=== PATIENT | female | born 1970 | race Caucasian/White ===

== ENCOUNTER → 2016-11-01 | Outpatient (CLI) | payer OTHER ==
[~2016-11-01] MED LIST: ALBUAER19 INH; ASPEC81 PO; HYDR-5688 PO; LAVEOIL INH; MOME100A INH; MONT1TAB3 PO; MULT-506 PO; PEPPOIL INH; SENN-61 PO
--- NOTE | 2016-11-01 15:34 | DIAGNOSTIC IMAGING REPORT ---
CHEST 2 VIEWS ROUTINE CLINICAL HISTORY: Shortness of breath COMPARISON STUDY: 07/06/2015 FINDINGS: The cardiac and mediastinal contours are normal. There is no evidence of focal pulmonary consolidation. There is no evidence of failure. No pleural effusions are visualized.[ IMPRESSION: No active disease in the chest. Electronically signed by: Amos Nicholson M.D. 11/01/2016 3:32 PM Dictated Date/Time: 11/01/2016 3:32 PM
== END | disposition home or self-care (01) ==
LOC: C.RADPV 15:18
PROVIDERS: ATTEND Family Medicine
DX: R06.02 Shortness of breath (principal)

== ENCOUNTER → 2016-11-02 | Outpatient (CLI) | payer OTHER ==
--- NOTE | 2016-11-02 13:33 | MAMMOGRAPHY REPORT ---
BILATERAL DIGITAL SCREENING MAMMOGRAM TOMOSYNTHESIS WITH CAD: 11/02/2016 TECHNIQUE: Breast tomosynthesis in addition to standard 2D mammography was performed. Current study was also evaluated with a Computer Aided Detection (CAD) system. COMPARISON: Comparison is made to exams dated: 10/21/2015 mammogram, 10/19/2014 mammogram, 09/04/2012 mammogram, 08/19/2013 mammogram, 03/03/2013 mammogram, and 09/07/2011 mammogram - [facility]. BREAST COMPOSITION: The tissue of both breasts is heterogeneously dense, which may obscure small ma sses. FINDINGS: No suspicious masses, calcifications, or areas of architectural distortion are noted in e ither breast. There has been no significant interval change compared to prior exams. Scattered bilat eral benign-appearing calcifications are not significantly changed. IMPRESSION: ACR BI-RADS CATEGORY 2: BENIGN There is no mammographic evidence of malignancy. A 1 year screening mammogram is recommended. The p atient will receive written notification of the results. Approximately 10% of breast cancers are not detected with mammography. A negative mammographic repor t should not delay biopsy if a clinically suggestive mass is present. Yoselyn Alas M.D. /:11/02/2016 12:19:31 Masonry Installer: Angie SANCHEZ(Shade)(M), [facility] letter sent: Normal 1/2 BI-RADS Code: ACR BI-RADS Category 2: Benign
== END | disposition home or self-care (01) ==
LOC: C.MAMM 09:46
PROVIDERS: ATTEND Obstetrics & Gynecology
DX: Z12.31 Encounter for screening mammogram for malignant neoplasm of breast (principal)

== ENCOUNTER → 2017-05-31 | Outpatient (CLI) | payer OTHER | END | disposition home or self-care (01) | LOC: C.PAPS 11:45 | PROVIDERS: ATTEND Obstetrics & Gynecology | DX: Z12.4 Encounter for screening for malignant neoplasm of cervix (principal) ==

== ENCOUNTER → 2017-11-04 | Outpatient (CLI) | payer OTHER ==
--- NOTE | 2017-11-05 13:01 | MAMMOGRAPHY REPORT ---
BILATERAL DIGITAL SCREENING MAMMOGRAM TOMOSYNTHESIS WITH CAD: 11/04/2017 CLINICAL HISTORY: Routine screening. TECHNIQUE: Breast tomosynthesis in addition to standard 2D mammography was performed. Current study was also evaluated with a Computer Aided Detection (CAD) system. COMPARISON: Comparison is made to exams dated: 11/02/2016 mammogram, 10/21/2015 mammogram, 10/19/2014 m ammogram, 08/19/2013 mammogram, 09/04/2012 mammogram, and 09/03/2011 mammogram - [facility]ter. BREAST COMPOSITION: There are scattered areas of fibroglandular density in both breasts. FINDINGS: There are stable scattered and loosely grouped round and punctate microcalcifications bila terally. However, there are 2 possible new groupings of microcalcifications in the upper outer middl e and posterior right breast for which additional spot magnification views are recommended. No suspicious mass, asymmetry or architectural distortion is seen bilaterally. IMPRESSION: ACR BI-RADS CATEGORY 0: INCOMPLETE EVALUATION: NEED ADDITIONAL IMAGING EVALUATION The possible new groupings of faint microcalcifications in the right upper outer breast need addition al evaluation. The patient will be called to schedule an appointment. Approximately 10% of breast cancers are not detected with mammography. A negative mammographic report should not delay biopsy if a clinically suggestive mass is present. Joyce Minaya M.D. ay/:11/04/2017 14:35:53 [employer] Farmworker: Gio HARRINGTON)(Barrie), [facility] letter sent: Addl Imaging 0 BI-RADS Code: ACR BI-RADS Category 0: Incomplete Evaluation: Need Additional Imaging Evaluation
== END | disposition home or self-care (01) ==
LOC: C.MAMM 10:00
PROVIDERS: ATTEND Obstetrics & Gynecology
DX: Z12.31 Encounter for screening mammogram for malignant neoplasm of breast (principal)

== ENCOUNTER → 2017-11-12 | Outpatient (CLI) | payer OTHER ==
--- NOTE | 2017-11-13 07:58 | MAMMOGRAPHY REPORT ---
UNILATERAL RIGHT DIGITAL DIAGNOSTIC MAMMOGRAM: 11/12/2017 CLINICAL HISTORY: 47-year-old woman called back from screening mammography for possible new groupings of microcalcifications in the lateral right breast. TECHNIQUE: Spot magnification right CC and ML views were obtained. COMPARISON: Comparison is made to exams dated: 11/04/2017 mammogram, 11/02/2016 mammogram, 10/21/2015 m ammogram, 10/19/2014 mammogram, 08/19/2013 mammogram, and 09/04/2012 mammogram - [facility]ter. BREAST COMPOSITION: There are scattered areas of fibroglandular density in the right breast. FINDINGS: There are loose groupings and scattered microcalcifications throughout the right lateral b reast, mostly located in the upper outer quadrant. The microcalcifications are slightly increased in number comparing to prior spot magnification views obtained in 2012. Many of the calcifications dem onstrate tea cupping or flattening on the spot magnification ML views, suggesting benign milk of calc ium. They also have a smudgy appearance on the spot magnification CC views. Given the slight howeve r, increase in number of the groupings of calcifications, a short interval follow-up diagnostic mammo gram including spot magnification views is recommended to ensure stability in 6 months. No obvious f ocal area of architectural distortion or suspicious mass. IMPRESSION: ACR-BI-RADS CATEGORY 3: PROBABLY BENIGN There are scattered and loosely grouped smudgy microcalcifications in the lateral right breast, sligh tly increased in number comparing back to prior spot magnification views obtained in 2012, however ma ny demonstrate tea cupping or layering on the lateral view to suggest benign milk of calcium. Given the slight interval change, a short interval follow-up right diagnostic mammogram including repeat sp ot magnification views is recommended to ensure stability in 6 months. These results and recommendations were discussed with the patient at the time of the exam. She tenta tively scheduled a follow-up appointment prior to leaving our department. Approximately 10% of breast cancers are not detected with mammography. A negative mammographic report should not delay biopsy if a clinically suggestive mass is present. Joyce Minaya M.D. ay/:11/12/2017 10:24:56 Simulation Developer: Becca Al RT(R)(M), [facility] letter sent: Follow Up Recommended 3 BI-RADS Code: ACR-BI-RADS Category 3: Probably Benign
== END | disposition home or self-care (01) ==
LOC: C.MAMM 09:30
PROVIDERS: ATTEND Obstetrics & Gynecology
DX: R92.0 Mammographic microcalcification found on diagnostic imaging of breast (principal)

== ENCOUNTER 2021-04-18 18:29 | Inpatient (IN) ==
[2021-04-18] MEDS ORDERED: guaiFENesin 600 MG TABCR PO STA (22:57)
[2021-04-18] MEDS ORDERED: ONDANSETRON INJ 2 MG/ML 2 ML VIAL IV STA (22:57)
[2021-04-18] MEDS ORDERED: SODIUM CHLORIDE 0.9% 1000ML 2,000 ML IV ONE (22:57)
[2021-04-18] MEDS ORDERED: dexAMETHasone**PF** 10 MG/ML VIAL IV ONE (22:57)
[2021-04-18] MEDS ORDERED: FAMOTIDINE 20MG IV PUSH 20 MG/5 ML SYR IV STA (22:57)
[2021-04-18] MEDS ORDERED: IPRATROPIUM BROMIDE/ALBUTEROL respimat INH INH STA (22:59)
[2021-04-19 00:08] LABS: Prothrombin Time 10.3 Seconds (9.0-12.0)
[2021-04-19 00:09] LABS: Hematocrit (blood only) 43.1 % (37-47); Hemoglobin 14.5 g/dL (12.0-16.0); Mean Corpuscular Hemoglobin 31.3 pg (25-34); Mean Corpuscular Hgb Conc 33.6 g/dL (32-36); Mean Corpuscular Volume 93.1 fL (80-100); Mean Platelet Volume 9.8 fL (7.4-10.4); Platelet Count 166 K/uL (130-400); RDW Coefficient of Variation 13.6 % (11.5-14.5); RDW Standard Deviation 46.2 fL (36.4-46.3); Red Blood Count 4.63 M/uL (4.2-5.4); White Blood Count 4.34 K/uL (4.8-10.8)
[2021-04-19 00:11] LABS: Alanine Aminotransferase 53 U/L (12-78); Albumin Level 3.6 gm/dl (3.4-5.0); Aspartate Aminotransferase 29 U/L (15-37); Bilirubin Direct 0.2 mg/dl (0-0.2); Blood Urea Nitrogen 19 mg/dl (7-18); Calcium 8.5 mg/dl (8.5-10.1); Carbon Dioxide 31 mmol/L (21-32); Chloride 101 mmol/L (98-107); Creatinine Clr Calc Pharmacy 80.1 ml/min; Est GFR (African American) 80.8 ml/min; Est GFR (Non-African American) 69.8 ml/min; Glucose 129 mg/dl (70-99); Lipase 84 U/L (73-393); Magnesium 2.3 mg/dl (1.8-2.4); Potassium 3.5 mmol/L (3.5-5.1); Sodium 137 mmol/L (136-145)
[2021-04-19 00:14] LABS: Alkaline Phosphatase 72 U/L (45-117); Bilirubin,Total 0.7 mg/dl (0.2-1); Globulin 3.6 gm/dl (2.5-4.0); NT Pro B Type Natriuretic Pept 12 pg/ml (0-900); Phosphorus 3.2 mg/dl (2.5-4.9); Total Protein 7.2 gm/dl (6.4-8.2); Troponin I < 0.015 ng/ml (0-0.045)
[2021-04-19 00:18] LABS: Appearance Urine Clear (Clear); Bacteria Urine Automated Negative (Negative); Bilirubin Urine Negative (Negative); Blood Urine Negative (Negative); Color Urine Dark Yellow; Glucose Urine UA Negative (Negative); Ketones Urine 1+ (Negative); Leukocyte Esterase Urine Negative (Negative); Nitrite Urine Negative (Negative); Protein Urine Trace (Negative); RBC Urine Automated 0-4 /hpf (0-4); Specific Gravity Urine 1.034 (1.000-1.030); Urobilinogen Urine Negative (Negative); pH Urine 5.5 (4.5-7.5)
[2021-04-19 00:28] LABS: Basophils # (auto) 0.01 K/uL (0-0.2); Basophils % (auto) 0.2 %; Immature Granulocytes # (auto) 0.05 K/uL (0.00-0.02); Immature Granulocytes % (auto) 1.2 %; Lymphocytes # (auto) 0.94 K/uL (1.2-3.4); Lymphocytes % (auto) 21.7 %; Monocytes # (auto) 0.38 K/uL (0.11-0.59); Monocytes % (auto) 8.8 %; Neutrophils # (auto) 2.96 K/uL (1.4-6.5); Neutrophils % (auto) 68.1 %
--- NOTE | 2021-04-19 02:21 | Emergency Department Note ---
Impression & Plan Pneumonia due to COVID-19 virus, Hypoxia, Nausea & vomiting, Dehydration ED Provider Note NAME: GARRETT AMAYA AGE: 50 SEX: F ARRIVES VIA: Walk-In INFORMANT: Patient, ED PROVIDER(S): Bret Garcia MD CHIEF COMPLAINT: COVID-19, shortness of breath PLAN: Disposition: Admit MEDICAL DECISION MAKING: The patient is a pleasant 50-year-old woman with a past medical history of asthma, NIKUNJ on CPAP, GERD, hypertension, anxiety who presents to the emergency department with worsening shortness of breath in setting being diagnosed with CO VID-19 last week. She reports she has been feeling as though she needs to use her CPAP throughout the day given her symptoms. She reports nausea and vomiting with decreased appetite and oral intake. She denies diarrhea. She reports chest tightness but denies discrete pain with inspiration. On arrival the patient is uncomfortable, mildly dyspneic appearing, afebrile with heart in the 100s with O2 saturation as low as 88% on room air and vital signs otherwise stable. On exam the patient appears clinically dry. Lungs with scant wheezes and rhonchi. EKG without overt acute ischemia. Chest x-ray with patchy infiltrates, left greater than right per my preliminary review. WBC 4.3K with lymphopenia of 0.94 consistent with the patient's known COVID-19 infection. H/H and platelets within normal limits. Chemistry without metabolic acidosis. BUN/creatinine> 20 consistent with patient's clinical dry appearance. Electrolytes without significant abnormality. LFTs are unremarkable. Troponin negative/undetectable. BNP within normal limits and so PE is less likely. UA without convincing evidence of infection. COVID-19 PCR is still positive. Patient reported feeling somewhat improved after supplemental O2, IV fluid hydration, Combivent, guaifenesin, dexamethasone, famotidine and Zofran. Given the patient's hypoxia in the setting of her COVID-19 PNA she agrees with plan for admission for further management. Case was discussed with Dr. Casillas, [facility] hospitalist, who will evaluate the patient for admission. Triage Nursing notes reviewed and agree them. Prior medical records reviewed Vital Signs: reviewed and remarkable for cardiac and hypoxia. Differential diagnosis: Reactive airway disease, pneumonia, pneumothorax, COPD, CHF, infections, cardiac ischemia, pulmonary embolism, musculoskeletal, gastrointestinal, as well as other pathologies. ER treatment provided: See below. Diagnostics interpreted by me: ECG: Normal sinus rhythm, 94 bpm, no overt ST elevation or depression, QTC 420 QRS 70. Cardiac Monitoring: An order for continuous cardiac monitoring was placed and demonstrated normal sinus rhythm, 94 bpm, no ectopy. Laboratory studies: See below Imaging studies: CXR: Patchy bilateral infiltrates left greater than right per my preliminary review. Consultation(s): Case was discussed with Dr. Casillas, [facility] hospitalist, who will evaluate the patient for admission. HPI: The patient is a pleasant 50-year-old woman with a past medical history of asthma, NIKUNJ on CPAP, GERD, hypertension, anxiety who presents to the emergency department with worsening shortness of breath in setting being diagnosed with COVID-19 last week. She reports she has been feeling as though she needs to use her CPAP throughout the day given her symptoms. She reports nausea and vomiting with decreased appetite and oral intake. She denies diarrhea. She reports chest tightness but denies discrete pain with inspiration. ROS: See above HPI for pertinent positives & negatives. A total of 10 systems reviewed and were otherwise negative. PAST MEDICAL HISTORY:See Below PAST SURGICAL HISTORY:See Below FAMILY HISTORY:See Below SOCIAL HISTORY:See Below HOME MEDICATIONS:See Below ALLERGIES:See Below VITALS:See Below PHYSICAL EXAMINATION: GENERAL: Awake, alert, fatigued/uncomfortable-appearing, in no distress, BMI 46. HENT: Normocephalic, atraumatic. Oropharynx dry mucous membranes. EYES: Normal conjunctiva. Sclera non-icteric. NECK: Supple. No nuchal rigidity. FROM. No JVD. RESPIRATORY: Scant wheezes and rhonchi. Mildly dyspneic but no acute respiratory distress. CARDIAC: Tachycardic rate, normal rhythm. Extremities warm and well perfused. Pulses equal. ABDOMEN: Soft, non-distended. No tenderness to palpation. No rebound or guarding. No masses. RECTAL: Deferred. MUSCULOSKELETAL: Chest examination reveals no tenderness. The back is symmetrical on inspection without obvious abnormality. There is no CVA tenderness to palpation. No joint edema. LOWER EXTREMITIES: Calves are equal size bilaterally and non-tender. No edema. No discoloration. NEURO: Normal sensorium. No sensory or motor deficits noted. SKIN: No rash or jaundice noted. Bret Garcia MD Past Med/Surg History Medical History (Updated 04/19/21 @ 17:08 by Bret Garcia MD) Asthma inhaler daily/prn Depression GERD (gastroesophageal reflux disease) HGSIL (high grade squamous intraepithelial lesion) on Pap smear of cervix 1990 History of anesthesia reaction difficulty waking History of bloody stools History of thyroid disease Mild dysplasia of cervix (MARTINA I) Osteoarthritis Pancreatitis Surgical History H/O colposcopy with cervical biopsy History of section History of colonoscopy History of dilatation and curettage History of root canal procedure History of total left knee replacement (TKR) History of total right knee replacement (TKR) History of wisdom tooth extraction S/P conization of cervix S/P myringotomy with insertion of tube S/P tonsillectomy and adenoidectomy Family History Grandmother (Maternal) Diabetes Aunt Breast cancer maternal aunt Family/Other Colorectal cancer Prostate cancer Myocardial infarction Grandfather (Maternal) Myocardial infarction Mother Parkinson disease Denies family history of Ovarian cancer Social History Smoking Status: Never smoker Second Hand Exposure: Yes (mother smoked); Hx Alcohol Use: No Hx Substance Use: No Preferred Language: Belarusian Communication Ability: Effective Pharmacy Messenger Required: No Beliefs That Will Affect Care: None marital status: Current Living Situation: Spouse Current Living Situation Comment: lives with and son current occupational status: employed Feels Safe at Home: Yes caffeine: Yes Dental Care, Regularly: Yes Physical Activity Frequency: Daily Seatbelt Use: always Sunscreen Use: Yes Assistive Devices: Oxygen - Continuous Allergies Allergies Allergy/AdvReac Type Severity Reaction Status Date / Time Sulfa (Sulfonamide Allergy Severe Anaphylaxis Verified 04/18/21 22:24 Antibiotics) Home Meds Home Medications Medication Instructions Recorded Confirmed calcium carbonate 300 mg (750 mg) 300 mg PO DAILY PRN 08/25/18 04/18/21 chewable tablet (Tums) cholecalciferol (vitamin D3) 25 1,000 unit PO DAILY PRN 08/25/18 04/18/21 mcg (1,000 unit) capsule (Vitamin D3) multivitamin 1 tab PO QAM 08/25/18 04/18/21 omeprazole 40 mg capsule,delayed 40 mg PO DAILY 04/18/21 04/18/21 release Previous Rx's Medication Instructions Recorded CPAP Machine #11 ea 03/26/19 citalopram 10 mg tablet 10 mg PO DAILY #30 tab 10/13/20 lisinopril 10 mg tablet 10 mg PO DAILY #30 tab 10/13/20 estradiol 0.5 mg tablet 0.5 mg PO DAILY #30 tab 11/17/20 medroxyprogesterone 10 mg tablet 10 mg PO .COMPLEX #10 tab 11/17/20 albuterol sulfate 90 mcg/actuation 1 - 2 puff INHALATION QID PRN #18 03/10/21 aerosol inhaler (Ventolin HFA) gm fluticasone furoate 100 1 inh INHALATION QAM #60 ea 03/10/21 mcg-vilanterol 25 mcg/dose inhalation powder (Breo Ellipta) prednisone 20 mg tablet See Rx Instructions PO .COMPLEX 04/13/21 #30 tab Results & Data (ED) Vital Signs Vital Signs - 24 hr 04/18/21 18:38 04/18/21 22:35 04/18/21 22:38 Temperature 37 C 37.0 C Temperature Source Temporal Artery Scan Oral Pulse Rate 102 H Pulse Rate [Radial] 93 H Pulse Rate from SpO2 Sensor 91 H Pulse Rhythm Pulse Rhythm [Radial] Regular Respiratory Rate 22 18 24 Respiratory Effort / Characteristics Non-Labored Labored Short of Breath Respiratory Depth Normal Shallow Respiratory Pattern Regular Blood Pressure 132/87 126/80 Blood Pressure [Right Arm] 126/80 Blood Pressure Mean 102 95 Blood Pressure Mean [Right Arm] 95 Blood Pressure Position [Right Arm] Sitting Pulse Oximetry 91 89 L 92 Oxygen Delivery Method Room Air Room Air Oxygen Flow Rate Sepsis Recent Fever Within 48 Hours No Sepsis New/Unexplained Change in Mental Status N/A Sepsis Action Taken by Nursing No Action Required 04/18/21 23:00 04/18/21 23:33 04/18/21 23:34 Temperature Temperature Source Pulse Rate 94 H Pulse Rate [Radial] Pulse Rate from SpO2 Sensor 97 H 94 H Pulse Rhythm Regular Pulse Rhythm [Radial] Respiratory Rate 23 28 H 21 Respiratory Effort / Characteristics Respiratory Depth Respiratory Pattern Blood Pressure 139/80 Blood Pressure [Right Arm] Blood Pressure Mean 99 Blood Pressure Mean [Right Arm] Blood Pressure Position [Right Arm] Pulse Oximetry 91 98 96 Oxygen Delivery Method Nasal Cannula Oxygen Flow Rate 2 Sepsis Recent Fever Within 48 Hours Sepsis New/Unexplained Change in Mental Status Sepsis Action Taken by Nursing 04/19/21 00:00 04/19/21 00:30 04/19/21 01:00 Temperature Temperature Source Pulse Rate 138 H 83 79 Pulse Rate [Radial] Pulse Rate from SpO2 Sensor 89 83 79 Pulse Rhythm Pulse Rhythm [Radial] Respiratory Rate 20 21 19 Respiratory Effort / Characteristics Respiratory Depth Respiratory Pattern Blood Pressure 106/70 114/80 117/70 Blood Pressure [Right Arm] Blood Pressure Mean 82 91 85 Blood Pressure Mean [Right Arm] Blood Pressure Position [Right Arm] Pulse Oximetry 96 96 97 Oxygen Delivery Method Oxygen Flow Rate Sepsis Recent Fever Within 48 Hours Sepsis New/Unexplained Change in Mental Status Sepsis Action Taken by Nursing 04/19/21 01:30 04/19/21 02:00 04/19/21 02:30 Temperature Temperature Source Pulse Rate 74 70 67 Pulse Rate [Radial] Pulse Rate from SpO2 Sensor 73 70 68 Pulse Rhythm Pulse Rhythm [Radial] Respiratory Rate 20 21 21 Respiratory Effort / Characteristics Respiratory Depth Respiratory Pattern Blood Pressure 107/71 115/67 113/68 Blood Pressure [Right Arm] Blood Pressure Mean 83 83 83 Blood Pressure Mean [Right Arm] Blood Pressure Position [Right Arm] Pulse Oximetry 97 95 95 Oxygen Delivery Method Oxygen Flow Rate Sepsis Recent Fever Within 48 Hours Sepsis New/Unexplained Change in Mental Status Sepsis Action Taken by Nursing Laboratory Data Attestation: I reviewed the patient's lab results. Result diagrams: 04/18/21 23:35 04/18/21 23:35 Lab Results 04/18/21 04/18/21 04/18/21 Range/Units 23:30 23:30 23:35 WBC (4.8-10.8) K/uL RBC (4.2-5.4) M/uL Hgb (12.0-16.0) g/dL Hct (37-47) % MCV (80-100) fL MCH (25-34) pg MCHC (32-36) g/dL RDW Std Deviation (36.4-46.3) fL RDW Coeff of Yoandy (11.5-14.5) % Plt Count (130-400) K/uL MPV (7.4-10.4) fL Immature Gran % (Auto) % Neut % (Auto) % Lymph % (Auto) % [place] % (Auto) % Eos % (Auto) % Baso % (Auto) % Neut # (Auto) (1.4-6.5) K/uL Lymph # (Auto) (1.2-3.4) K/uL [place] # (Auto) (0.11-0.59) K/uL Eos # (Auto) (0-0.5) K/uL Baso # (Auto) (0-0.2) K/uL Immature Gran # (Auto) (0.00-0.02) K/uL PT 10.3 (9.0-12.0) Seconds INR 1.0 (0.9-1.1) APTT 25.0 (21.0-31.0) Seconds PTT Ratio 1.0 Sodium (136-145) mmol/L Potassium (3.5-5.1) mmol/L Chloride (98-107) mmol/L Carbon Dioxide (21-32) mmol/L Anion Gap (3-11) BUN (7-18) mg/dl Creatinine (0.6-1.2) mg/dl Est Cr Clr Drug Dosing ml/min Est GFR ( Amer) ml/min Est GFR (Non-Af Amer) ml/min BUN/Creatinine Ratio (10-20) Glucose (70-99) mg/dl Calcium (8.5-10.1) mg/dl Phosphorus (2.5-4.9) mg/dl Magnesium (1.8-2.4) mg/dl Total Bilirubin (0.2-1) mg/dl Direct Bilirubin (0-0.2) mg/dl AST (15-37) U/L ALT (12-78) U/L Alkaline Phosphatase (45-117) U/L Troponin I (0-0.045) ng/ml NT-Pro-B Natriuret Pep (0-900) pg/ml Total Protein (6.4-8.2) gm/dl Albumin (3.4-5.0) gm/dl Globulin (2.5-4.0) gm/dl Albumin/Globulin Ratio (0.9-2) Lipase (73-393) U/L Procalcitonin (0-0.5) ng/ml Urine Color Urine Appearance (Clear) Urine pH (4.5-7.5) Ur Specific [place] (1.000-1.030) Urine Protein (Negative) Urine Glucose (UA) (Negative) Urine Ketones (Negative) Urine Blood (Negative) Urine Nitrite (Negative) Urine Bilirubin (Negative) Urine Urobilinogen (Negative) Ur Leukocyte Esterase (Negative) Urine WBC (Auto) (0-5) /hpf Urine RBC (Auto) (0-4) /hpf U Hyaline Cast (Auto) (0-5) /lpf U Epithel Cells (Auto) (0-5) /lpf Urine Bacteria (Auto) (Negative) COVID-19 Eval Order Covid19 at [facility] SARS-CoV-2 (PCR) POSITIVE A* (Negative) 04/18/21 04/18/21 04/18/21 Range/Units 23:35 23:35 23:35 WBC 4.34 L (4.8-10.8) K/uL RBC 4.63 (4.2-5.4) M/uL Hgb 14.5 (12.0-16.0) g/dL Hct 43.1 (37-47) % MCV 93.1 (80-100) fL MCH 31.3 (25-34) pg MCHC 33.6 (32-36) g/dL RDW Std Deviation 46.2 (36.4-46.3) fL RDW Coeff of Yoandy 13.6 (11.5-14.5) % Plt Count 166 (130-400) K/uL MPV 9.8 (7.4-10.4) fL Immature Gran % (Auto) 1.2 % Neut % (Auto) 68.1 % Lymph % (Auto) 21.7 % [place] % (Auto) 8.8 % Eos % (Auto) 0.0 % Baso % (Auto) 0.2 % Neut # (Auto) 2.96 (1.4-6.5) K/uL Lymph # (Auto) 0.94 L (1.2-3.4) K/uL [place] # (Auto) 0.38 (0.11-0.59) K/uL Eos # (Auto) 0.00 (0-0.5) K/uL Baso # (Auto) 0.01 (0-0.2) K/uL Immature Gran # (Auto) 0.05 H (0.00-0.02) K/uL PT (9.0-12.0) Seconds INR (0.9-1.1) APTT (21.0-31.0) Seconds PTT Ratio Sodium 137 (136-145) mmol/L Potassium 3.5 (3.5-5.1) mmol/L Chloride 101 (98-107) mmol/L Carbon Dioxide 31 (21-32) mmol/L Anion Gap 5.0 (3-11) BUN 19 H (7-18) mg/dl Creatinine 0.94 (0.6-1.2) mg/dl Est Cr Clr Drug Dosing 80.1 ml/min Est GFR ( Amer) 80.8 ml/min Est GFR (Non-Af Amer) 69.8 ml/min BUN/Creatinine Ratio 20.0 (10-20) Glucose 129 H (70-99) mg/dl Calcium 8.5 (8.5-10.1) mg/dl Phosphorus 3.2 (2.5-4.9) mg/dl Magnesium 2.3 (1.8-2.4) mg/dl Total Bilirubin 0.7 (0.2-1) mg/dl Direct Bilirubin 0.2 (0-0.2) mg/dl AST 29 (15-37) U/L ALT 53 (12-78) U/L Alkaline Phosphatase 72 (45-117) U/L Troponin I < 0.015 (0-0.045) ng/ml NT-Pro-B Natriuret Pep 12 (0-900) pg/ml Total Protein 7.2 (6.4-8.2) gm/dl Albumin 3.6 (3.4-5.0) gm/dl Globulin 3.6 (2.5-4.0) gm/dl Albumin/Globulin Ratio 1.0 (0.9-2) Lipase 84 (73-393) U/L Procalcitonin < 0.05 (0-0.5) ng/ml Urine Color Urine Appearance (Clear) Urine pH (4.5-7.5) Ur Specific [place] (1.000-1.030) Urine Protein (Negative) Urine Glucose (UA) (Negative) Urine Ketones (Negative) Urine Blood (Negative) Urine Nitrite (Negative) Urine Bilirubin (Negative) Urine Urobilinogen (Negative) Ur Leukocyte Esterase (Negative) Urine WBC (Auto) (0-5) /hpf Urine RBC (Auto) (0-4) /hpf U Hyaline Cast (Auto) (0-5) /lpf U Epithel Cells (Auto) (0-5) /lpf Urine Bacteria (Auto) (Negative) COVID-19 Eval Order SARS-CoV-2 (PCR) (Negative) 04/19/21 Range/Units 00:00 WBC (4.8-10.8) K/uL RBC (4.2-5.4) M/uL Hgb (12.0-16.0) g/dL Hct (37-47) % MCV (80-100) fL MCH (25-34) pg MCHC (32-36) g/dL RDW Std Deviation (36.4-46.3) fL RDW Coeff of Yoandy (11.5-14.5) % Plt Count (130-400) K/uL MPV (7.4-10.4) fL Immature Gran % (Auto) % Neut % (Auto) % Lymph % (Auto) % [place] % (Auto) % Eos % (Auto) % Baso % (Auto) % Neut # (Auto) (1.4-6.5) K/uL Lymph # (Auto) (1.2-3.4) K/uL [place] # (Auto) (0.11-0.59) K/uL Eos # (Auto) (0-0.5) K/uL Baso # (Auto) (0-0.2) K/uL Immature Gran # (Auto) (0.00-0.02) K/uL PT (9.0-12.0) Seconds INR (0.9-1.1) APTT (21.0-31.0) Seconds PTT Ratio Sodium (136-145) mmol/L Potassium (3.5-5.1) mmol/L Chloride (98-107) mmol/L Carbon Dioxide (21-32) mmol/L Anion Gap (3-11) BUN (7-18) mg/dl Creatinine (0.6-1.2) mg/dl Est Cr Clr Drug Dosing ml/min Est GFR ( Amer) ml/min Est GFR (Non-Af Amer) ml/min BUN/Creatinine Ratio (10-20) Glucose (70-99) mg/dl Calcium (8.5-10.1) mg/dl Phosphorus (2.5-4.9) mg/dl Magnesium (1.8-2.4) mg/dl Total Bilirubin (0.2-1) mg/dl Direct Bilirubin (0-0.2) mg/dl AST (15-37) U/L ALT (12-78) U/L Alkaline Phosphatase (45-117) U/L Troponin I (0-0.045) ng/ml NT-Pro-B Natriuret Pep (0-900) pg/ml Total Protein (6.4-8.2) gm/dl Albumin (3.4-5.0) gm/dl Globulin (2.5-4.0) gm/dl Albumin/Globulin Ratio (0.9-2) Lipase (73-393) U/L Procalcitonin (0-0.5) ng/ml Urine Color Dark Yellow Urine Appearance Clear (Clear) Urine pH 5.5 (4.5-7.5) Ur Specific [place] 1.034 H (1.000-1.030) Urine Protein Trace H (Negative) Urine Glucose (UA) Negative (Negative) Urine Ketones 1+ H (Negative) Urine Blood Negative (Negative) Urine Nitrite Negative (Negative) Urine Bilirubin Negative (Negative) Urine Urobilinogen Negative (Negative) Ur Leukocyte Esterase Negative (Negative) Urine WBC (Auto) 1-5 (0-5) /hpf Urine RBC (Auto) 0-4 (0-4) /hpf U Hyaline Cast (Auto) 1-5 (0-5) /lpf U Epithel Cells (Auto) 10-20 H (0-5) /lpf Urine Bacteria (Auto) Negative (Negative) COVID-19 Eval Order SARS-CoV-2 (PCR) (Negative) Administered Medications Citalopram Hydrobromide (Citalopram 20 Mg Tab) 10 mg PO DAILY SEBAS Stop: 05/19/21 08:59 Last Admin: 04/19/21 07:47 Dose: 10 mg Documented by: [id number] Enoxaparin Sodium (Enoxaparin Inj 40 Mg/0.4 Ml Syr) 40 mg SQ Q12H SEBAS Stop: 05/19/21 05:59 Last Admin: 04/19/21 07:42 Dose: 40 mg Documented by: [id number] Estradiol (Estradiol 1 Mg Tab) 0.5 mg PO DAILY SEBAS Stop: 05/19/21 08:59 Last Admin: 04/19/21 07:47 Dose: 0.5 mg Documented by: [id number] Fluticasone/Vilanterol (Fluticasone/Vilanterol 100/25mcg 14 Puffs/Inhaler) 1 puffs INH QAM SEBAS Stop: 05/19/21 08:59 Last Admin: 04/19/21 07:46 Dose: 1 puffs Documented by: [id number] Guaifenesin (Guaifenesin 600 Mg Tabcr) 600 mg PO Q12 SEBAS Stop: 05/19/21 08:59 Last Admin: 04/19/21 07:47 Dose: 600 mg Documented by: [id number] Dexamethasone 6 mg/ Syringe 1.5 mls @ 1 mls/min IV Q24H SEBAS Stop: 05/19/21 08:59 Last Admin: 04/19/21 10:00 Dose: 1 mls/min Documented by: [id number] Lisinopril (Lisinopril 10 Mg Tab) 10 mg PO DAILY SEBAS Stop: 05/19/21 08:59 Last Admin: 04/19/21 07:48 Dose: 10 mg Documented by: [id number] Medroxyprogesterone Acetate (Medroxyprogesterone Acetate 10 Mg Tab) 10 mg PO DAILY SEBAS Stop: 05/19/21 08:59 Last Admin: 04/19/21 07:47 Dose: 10 mg Documented by: [id number] Pantoprazole Sodium (Pantoprazole 40 Mg Tab) 40 mg PO DAILY SEBAS Stop: 05/19/21 08:59 Last Admin: 04/19/21 07:48 Dose: 40 mg Documented by: [id number] Discontinued Medications Albuterol (Ipratropium [place]/Albuterol Respimat Inh) 2 puffs INH NOW STA Stop: 04/18/21 23:00 Last Admin: 04/18/21 23:54 Dose: 120 puffs Documented by: [id number] Dexamethasone Sodium Phosphate (DexamethasonePf 10 Mg/Ml Vial) 10 mg IV NOW ONE Stop: 04/18/21 22:58 Last Admin: 04/18/21 23:54 Dose: 10 mg Documented by: [id number] Guaifenesin (Guaifenesin 600 Mg Tabcr) 600 mg PO NOW STA Stop: 04/18/21 22:58 Last Admin: 04/18/21 23:53 Dose: 600 mg Documented by: [id number] Sodium Chloride (Nss 1000ml) 2,000 mls @ 999 mls/hr IV .Q2H1M ONE Stop: 04/19/21 00:57 Last Infusion: 04/19/21 02:00 Dose: 0 mls/hr Documented by: [id number] Admin: 04/18/21 23:58 Dose: 999 mls/hr Documented by: [id number] Famotidine (Pepcid 20mg Iv Push) 20 mg in 5 mls @ 2.5 mls/min IV NOW STA Stop: 04/18/21 22:58 Last Admin: 04/18/21 23:54 Dose: 2.5 mls/min Documented by: [id number] Magnesium Sulfate/Dextrose (Magnesium Sulfate / D5w) 1 gm in 100 mls @ 50 mls/hr IV ONE ONE Stop: 04/19/21 06:11 Last Infusion: 04/19/21 08:07 Dose: 0 mls/hr Documented by: [id number] Admin: 04/19/21 05:38 Dose: 50 mls/hr Documented by: [id number] Ondansetron HCl (Ondansetron Inj 2 Mg/Ml 2 Ml Vial) 4 mg IV NOW STA Stop: 04/18/21 22:58 Last Admin: 04/18/21 23:54 Dose: 4 mg Documented by: [id number] Imaging Data Radiologist's Impression: Chest X-Ray 04/18/21 22:58 XR chest 1V portable CLINICAL HISTORY: Chest pain. Shortness of breath. COMPARISON STUDY: Chest radiograph June 27, 2020. FINDINGS: Lung volumes are diminished. There is no pneumothorax. No pleural effusion. There are mild bibasilar opacities. There is minimal left midlung opacity. Cardiac silhouette is at the upper limits of normal for size. There is no evidence for pulmonary edema. IMPRESSION: Bibasilar and left midlung opacities. The findings may reflect atelectasis on this hypoventilatory study however an infectious process could appear similar. Radiographic follow up is recommended to ensure resolution. ACT 112: Negative or not required by law. Electronically signed by: Jin Paiz M.D. 04/19/2021 8:49 AM Discharge Plan Visit Data Chief Complaint: Cough Stated Complaint: COVID +, COUGH ED Provider: Bret Garcia Discharge Problem: Pneumonia due to COVID-19 virus, Hypoxia, Nausea & vomiting, Dehydration Patient Disposition: Admitted As Inpatient Discharge Instructions Interventions: ED Discharge Assessment Last Done: 04/19/21 03:33 Discharge Problem: Nausea & vomiting Qualifiers: Vomiting type: unspecified Vomiting Intractability: non-intractable Qualified Code(s): R11.2 - Nausea with vomiting, unspecified
--- NOTE | 2021-04-19 03:08 | History & Physical Report ---
Date of Service April 19, 2021 Assessment & Plan (1) COVID-19: Plan: 50yo female presenting with Covid-19 infection. Symptoms began approximately 10-11 days ago. She is afebrile, HD stable at this point. Hypoxic in the ER requiring placement of 2L O2 by NC. Patient has been using her CPAP during the day at home due to feelings of dyspnea and inability to take a full breath. Leukopenic with lymphopenia -Check Procalcitonin -Admit to medical -Maintain isolation precautions -Dexamethasone 6mg IV daily -Lovenox 40mg SQ BID -Tessalon, Mucincex, Tylenol and Albuterol PRN -Incentive spirometer q 2 hours while awake -CPAP q HS and with naps - patient may use her own machine (2) Asthma: Plan: No wheezing appreciated on exam. Patient does have poor air-flow. She reports seasonal flare of her asthma typically around this time of year - may be playing a part in her overall feeling of dyspnea -Albuterol HFA PRN -Continue Breo -Dexamethasone 6mg IV daily -Will give 1gm Mg (3) GERD (gastroesophageal reflux disease): Plan: Chronic. Stable -Protonix while inpatient (4) Depression: Plan: Chronic. Stable. Patient does appear slightly anxious re: current health situation -Continue Citalopram (5) NIKUNJ on CPAP: Plan: CPAP qHS and with naps Plan: F/E/N - [place]. Electrolytes WNL. Heart healthy diet as tolerated Ppx - Lovenox 40 BID Code - Full Dispo - Admit to medical History of Present Illness Chief Complaint: Covid-19 PNA Primary Care Provider: Radha Brown MD Sarah Jean is a 50yo female with history of Asthma, NIKUNJ on CPAP presenting with Covid-19 infection. Patient developed symptoms appx 10-11 days ago - cough, SOB, fever, nausea and vomiting as well as decreased appetite and loss of taste sensation. She has been doing fairly well at home. Was started on Prednisone by her PCP. Presents today with concern that she is unable to take a deep breath. States that her chest feels tight and she is unable to take a full breath. Has not been taking her inhalers as prescribed due to the fact that she states she was unable to take a full breath to deliver them. She is no febrile. Cough is productive for yellow/clear sputum. She has been using her CPAP at home during the day due to concern for feeling short of breath. Unvaccinated - was planning to get her Covid vaccine this week. Was put on hold because she got her Shingles vaccine and had to wait +Sick contacts - niece and [id number] with Covid infection. Both are doing well Patient with history of [id number]. Typically experiences a flare of asthma this time of year - she believes it occurs after she goes to the [facility] Oxygen saturations in the ER as low as 88% by report No additional complaints at this time ER Course: Albuterol, Dexamethasone, Pepcid, Guaifenesin, Zofran, NSS Allergies Allergy/AdvReac Type Severity Reaction Status Date / Time Sulfa (Sulfonamide Allergy Severe Anaphylaxis Verified 04/18/21 22:24 Antibiotics) Home Medications Medication Instructions Recorded Confirmed Type calcium carbonate 300 mg (750 mg) 300 mg PO DAILY PRN 08/25/18 04/18/21 History chewable tablet (Tums) cholecalciferol (vitamin D3) 25 1,000 unit PO DAILY PRN 08/25/18 04/18/21 History mcg (1,000 unit) capsule (Vitamin D3) multivitamin 1 tab PO QAM 08/25/18 04/18/21 History CPAP Machine #11 ea 03/26/19 04/18/21 Rx citalopram 10 mg tablet 10 mg PO DAILY #30 tab 10/13/20 04/18/21 Rx lisinopril 10 mg tablet 10 mg PO DAILY #30 tab 10/13/20 04/18/21 Rx estradiol 0.5 mg tablet 0.5 mg PO DAILY #30 tab 11/17/20 04/18/21 Rx medroxyprogesterone 10 mg tablet 10 mg PO .COMPLEX #10 tab 11/17/20 04/18/21 Rx albuterol sulfate 90 mcg/actuation 1 - 2 puff INHALATION QID PRN #18 03/10/21 04/18/21 Rx aerosol inhaler (Ventolin HFA) gm fluticasone furoate 100 1 inh INHALATION QAM #60 ea 03/10/21 04/18/21 Rx mcg-vilanterol 25 mcg/dose inhalation powder (Breo Ellipta) prednisone 20 mg tablet See Rx Instructions PO .COMPLEX 04/13/21 04/18/21 Rx #30 tab omeprazole 40 mg capsule,delayed 40 mg PO DAILY 04/18/21 04/18/21 History release Past Med/Surg History Medical History (Updated 04/19/21 @ 03:02 by Sheryl Casillas DO) Asthma inhaler daily/prn Depression GERD (gastroesophageal reflux disease) HGSIL (high grade squamous intraepithelial lesion) on Pap smear of cervix 1990 History of anesthesia reaction difficulty waking History of bloody stools History of thyroid disease Mild dysplasia of cervix (MARTINA I) Osteoarthritis Pancreatitis Surgical History H/O colposcopy with cervical biopsy History of section History of colonoscopy History of dilatation and curettage History of root canal procedure History of total left knee replacement (TKR) History of total right knee replacement (TKR) History of wisdom tooth extraction S/P conization of cervix S/P myringotomy with insertion of tube S/P tonsillectomy and adenoidectomy Family History Grandmother (Maternal) Diabetes Aunt Breast cancer maternal aunt Family/Other Colorectal cancer Prostate cancer Myocardial infarction Grandfather (Maternal) Myocardial infarction Mother Parkinson disease Denies family history of Ovarian cancer Social History Smoking Status: Never smoker Second Hand Exposure: Yes (mother smoked); Hx Alcohol Use: Yes Alcohol type: beer and wine Alcohol Intake Frequency: Monthly or Less Hx Substance Use: No Preferred Language: Welsh Communication Ability: Effective Power Lineman Required: No Beliefs That Will Affect Care: None marital status: Current Living Situation: Spouse and Family Current Living Situation Comment: lives with and son current occupational status: employed Feels Safe at Home: Yes caffeine: Yes Dental Care, Regularly: Yes Physical Activity Frequency: Daily Seatbelt Use: always Sunscreen Use: Yes Assistive Devices: None Review of Systems Review of Systems: All systems reviewed & are unremarkable except as noted in HPI & below Patient denies fever, chills, body aches, chest pain, palpitations Nausea and vomiting have resolved. NO diarrhea or constipation No dysuria Physical Exam Physical Exam: General: patient resting comfortably, mildly anxious in appearance, NAD, non-toxic in appearance, AA&O x 4 Skin: warm, dry, intact, no rashes or lesions HEENT: NC/AT, PERRL, EOMI, anicteric sclera, conjunctiva without injection, external ear normal to inspection and nontender, nares patent, moist mucus membranes, dentition intact, no oropharyngeal lesions, neck supple, trachea midline, no LAD, no thyromegaly, no JVD Heart: +S1/S2, regular, no m/r/g Lungs: diminished breath sounds bilaterally, small/short breaths, no rales/rhonchi/wheezes Abd: +BS, soft, NT/ND, no masses/organomegaly/ascites Ext: warm, 2+ pulses in UE/LE bilaterally, no clubbing/cyanosis or edema Neuro: nonfocal, patient AA&O x 4, speech intact, no facial droop, moving all extremities on command with equal strength 5/5 Results & Data Results & Data ([facility]) Vital Signs (Past 12 Hours) Vital Signs Temp Pulse Pulse Resp BP BP Pulse Ox 04/19/21 02:30 67 21 113/68 95 04/19/21 02:00 70 21 115/67 95 04/19/21 01:30 74 20 107/71 97 04/19/21 01:00 79 19 117/70 97 04/19/21 00:30 83 21 114/80 96 04/19/21 00:00 138 H 20 106/70 96 04/18/21 23:34 94 H 21 96 04/18/21 23:33 28 H 98 04/18/21 23:00 23 139/80 91 04/18/21 22:38 37.0 C 93 H 24 126/80 92 04/18/21 22:35 18 126/80 89 L 04/18/21 18:38 37 C 102 H 22 132/87 91 Laboratory Results Laboratory Results WBC 4.34 K/uL (4.8-10.8) L 04/18/21 23:35 RBC 4.63 M/uL (4.2-5.4) 04/18/21 23:35 Hgb 14.5 g/dL (12.0-16.0) 04/18/21 23:35 Hct 43.1 % (37-47) 04/18/21 23:35 MCV 93.1 fL (80-100) 04/18/21 23:35 MCH 31.3 pg (25-34) 04/18/21 23:35 MCHC 33.6 g/dL (32-36) 04/18/21 23:35 RDW Std Deviation 46.2 fL (36.4-46.3) 04/18/21 23:35 RDW Coeff of Yoandy 13.6 % (11.5-14.5) 04/18/21 23:35 Plt Count 166 K/uL (130-400) 04/18/21 23:35 MPV 9.8 fL (7.4-10.4) 04/18/21 23:35 Immature Gran % (Auto) 1.2 % 04/18/21 23:35 Neut % (Auto) 68.1 % 04/18/21 23:35 Lymph % (Auto) 21.7 % 04/18/21 23:35 [place] % (Auto) 8.8 % 04/18/21 23:35 Eos % (Auto) 0.0 % 04/18/21 23:35 Baso % (Auto) 0.2 % 04/18/21 23:35 Neut # (Auto) 2.96 K/uL (1.4-6.5) 04/18/21 23:35 Lymph # (Auto) 0.94 K/uL (1.2-3.4) L 04/18/21 23:35 [place] # (Auto) 0.38 K/uL (0.11-0.59) 04/18/21 23:35 Eos # (Auto) 0.00 K/uL (0-0.5) 04/18/21 23:35 Baso # (Auto) 0.01 K/uL (0-0.2) 04/18/21 23:35 Immature Gran # (Auto) 0.05 K/uL (0.00-0.02) H 04/18/21 23:35 PT 10.3 Seconds (9.0-12.0) 04/18/21 23:35 INR 1.0 (0.9-1.1) 04/18/21 23:35 APTT 25.0 Seconds (21.0-31.0) 04/18/21 23:35 PTT Ratio 1.0 04/18/21 23:35 Sodium 137 mmol/L (136-145) 04/18/21 23:35 Potassium 3.5 mmol/L (3.5-5.1) 04/18/21 23:35 Chloride 101 mmol/L (98-107) 04/18/21 23:35 Carbon Dioxide 31 mmol/L (21-32) 04/18/21 23:35 Anion Gap 5.0 (3-11) 04/18/21 23:35 BUN 19 mg/dl (7-18) H 04/18/21 23:35 Creatinine 0.94 mg/dl (0.6-1.2) 04/18/21 23:35 Est Cr Clr Drug Dosing 80.1 ml/min 04/18/21 23:35 Est GFR ( Amer) 80.8 ml/min 04/18/21 23:35 Est GFR (Non-Af Amer) 69.8 ml/min 04/18/21 23:35 BUN/Creatinine Ratio 20.0 (10-20) 04/18/21 23:35 Glucose 129 mg/dl (70-99) H 04/18/21 23:35 Calcium 8.5 mg/dl (8.5-10.1) 04/18/21 23:35 Phosphorus 3.2 mg/dl (2.5-4.9) 04/18/21 23:35 Magnesium 2.3 mg/dl (1.8-2.4) 04/18/21 23:35 Total Bilirubin 0.7 mg/dl (0.2-1) 04/18/21 23:35 Direct Bilirubin 0.2 mg/dl (0-0.2) 04/18/21 23:35 AST 29 U/L (15-37) 04/18/21 23:35 ALT 53 U/L (12-78) 04/18/21 23:35 Alkaline Phosphatase 72 U/L (45-117) 04/18/21 23:35 Troponin I < 0.015 ng/ml (0-0.045) 04/18/21 23:35 NT-Pro-B Natriuret Pep 12 pg/ml (0-900) 04/18/21 23:35 Total Protein 7.2 gm/dl (6.4-8.2) 04/18/21 23:35 Albumin 3.6 gm/dl (3.4-5.0) 04/18/21 23:35 Globulin 3.6 gm/dl (2.5-4.0) 04/18/21 23:35 Albumin/Globulin Ratio 1.0 (0.9-2) 04/18/21 23:35 Lipase 84 U/L (73-393) 04/18/21 23:35 Urine Color Dark Yellow 04/19/21 00:00 Urine Appearance Clear (Clear) 04/19/21 00:00 Urine pH 5.5 (4.5-7.5) 04/19/21 00:00 Ur Specific [place] 1.034 (1.000-1.030) H 04/19/21 00:00 Urine Protein Trace (Negative) H 04/19/21 00:00 Urine Glucose (UA) Negative (Negative) 04/19/21 00:00 Urine Ketones 1+ (Negative) H 04/19/21 00:00 Urine Blood Negative (Negative) 04/19/21 00:00 Urine Nitrite Negative (Negative) 04/19/21 00:00 Urine Bilirubin Negative (Negative) 04/19/21 00:00 Urine Urobilinogen Negative (Negative) 04/19/21 00:00 Ur Leukocyte Esterase Negative (Negative) 04/19/21 00:00 Urine WBC (Auto) 1-5 /hpf (0-5) 04/19/21 00:00 Urine RBC (Auto) 0-4 /hpf (0-4) 04/19/21 00:00 U Hyaline Cast (Auto) 1-5 /lpf (0-5) 04/19/21 00:00 U Epithel Cells (Auto) 10-20 /lpf (0-5) H 04/19/21 00:00 Urine Bacteria (Auto) Negative (Negative) 04/19/21 00:00 COVID-19 Eval Order Covid19 at [facility] 04/18/21 23:30 SARS-CoV-2 (PCR) POSITIVE (Negative) A* 04/18/21 23:30 Diagnostic Findings CXR - by my interpretation - poor inspiratory film, bibasilar atelectasis and increased interstitial markings Code Status & VTE Plan VTE Prophylaxis Plan VTE Prophylaxis will be ordered: Yes PG Care Time/CCT Total # of Minutes Spent Total Time Spent with Patient: Total time spent is greater than 50% in coordination of care (as documented) at patient's floor/unit and/or counseling patient: Coding Level of Care Code 94052 Initial Inpt Care Lvl 3 Diagnoses COVID-19 U07.1 Depression F32.9 NIKUNJ on CPAP G47.33; Z99.89 GERD (gastroesophageal reflux disease) K21.9 Asthma J45.909
[2021-04-19] MEDS ORDERED: MAGNESIUM SULFATE / D5W 1 GM/100 ML BAG IV ONE (04:12)
[2021-04-19] MEDS ORDERED: ALBUTEROL HFA 8 GM INHALER INH PRN (04:12)
[2021-04-19] MEDS ORDERED: ENOXAPARIN INJ 40 MG/0.4 ML SYR SQ SCH (04:12)
[2021-04-19] MEDS: ENOXAPARIN INJ 40 MG/0.4 ML SYR SQ SCH ×2 (07:42→18:58)
[2021-04-19] MEDS: FLUTICASONE/VILANTEROL 100/25MCG 14 PUFFS/INHALER INH SCH (07:46)
[2021-04-19] MEDS: medroxyPROGESTERone ACETATE 10 MG TAB PO SCH (07:47)
[2021-04-19] MEDS: CITALOPRAM 20 MG TAB PO SCH (07:47)
[2021-04-19] MEDS: guaiFENesin 600 MG TABCR PO SCH ×2 (07:47→20:09)
[2021-04-19] MEDS: estradioL 1 MG TAB PO SCH (07:47)
[2021-04-19] MEDS: PANTOprazole 40 MG TAB PO SCH (07:48)
[2021-04-19] MEDS: lisinopril 10 MG TAB PO SCH (07:48)
--- NOTE | 2021-04-19 08:50 | XRay Report ---
XR chest 1V portable CLINICAL HISTORY: Chest pain. Shortness of breath. COMPARISON STUDY: Chest radiograph June 27, 2020. FINDINGS: Lung volumes are diminished. There is no pneumothorax. No pleural effusion. There are mild bibasilar opacities. There is minimal left midlung opacity. Cardiac silhouette is at the upper limits of normal for size. There is no evidence for pulmonary edema. IMPRESSION: Bibasilar and left midlung opacities. The findings may reflect atelectasis on this hypove ntilatory study however an infectious process could appear similar. Radiographic follow up is recomme nded to ensure resolution. ACT 112: Negative or not required by law. Electronically signed by: Jin Paiz M.D. 04/19/2021 8:49 AM
[2021-04-19] MEDS: dexAMETHasone 6 MG in SYRINGE 0 ML IV SCH (10:00)
[2021-04-19] MEDS: ACETAMINOPHEN 325 MG TAB PO PRN (17:46)
--- NOTE | 2021-04-19 18:56 | Electrocardiogram Report ---
Test Reason : Blood Pressure : / mmHG Vent. Rate : 094 BPM Atrial Rate : 094 BPM P-R Int : 142 ms QRS Dur : 070 ms QT Int : 336 ms P-R-T Axes : 032 030 023 degrees QTc Int : 420 ms Normal sinus rhythm Normal ECG When compared with ECG of 27-JUN-2020 18:34, QRS axis Shifted left Nonspecific T wave abnormality, improved in Inferior leads Nonspecific T wave abnormality no longer evident in Lateral leads Confirmed by Juan M Morin ([id number]) on 04/19/2021 6:55:39 PM Referred By: REFERRED SELF Confirmed By:Haresh Morin
--- NOTE | 2021-04-19 20:17 | History & Physical Bridge Note ---
Date of Service April 19, 2021 History & Physical Bridge Note I have examined the patient, reviewed the History & Physical and in the interval since the performance of the History & Physical I have noted the following changes of clinical significance: I spoke to the patient on the phone later in the day as she had already been seen by the admitting physician this morning. I also spoke with her nurse. He reports that he turns her oxygen off at times while she is at rest in the room and has a normal pulse ox on room air. He does turn it back on for when she is ambulating around the room. She does tell me that she feels much improved already but still feels like she cannot quite take a deep breath. She cannot inhale her albuterol HFA and would like to try nebulizer treatment. She is proning at times and is doing well otherwise. She feels she will be ready to go tomorrow. We will do a two-step walk test in the morning
[2021-04-19] MEDS: BENZONATATE 100 MG CAPSULE PO PRN (23:44)
[2021-04-20] MEDS: ALBUT/IPRATROP 3MG/0.5MG NEB 3 ML VIAL NEB SCH ×3 (00:03→11:20)
[2021-04-20] MEDS ORDERED: ONDANSETRON INJ 2 MG/ML 2 ML VIAL ONE (00:15)
[2021-04-20] MEDS: ENOXAPARIN INJ 40 MG/0.4 ML SYR SQ SCH ×2 (05:53→18:30)
[2021-04-20 06:21] LABS: Hematocrit (blood only) 42.3 % (37-47); Hemoglobin 13.8 g/dL (12.0-16.0); Immature Granulocytes # (auto) 0.03 K/uL (0.00-0.02); Immature Granulocytes % (auto) 0.4 %; Lymphocytes # (auto) 0.96 K/uL (1.2-3.4); Lymphocytes % (auto) 13.7 %; Mean Corpuscular Hemoglobin 30.7 pg (25-34); Mean Corpuscular Hgb Conc 32.6 g/dL (32-36); Mean Corpuscular Volume 94.2 fL (80-100); Mean Platelet Volume 10.2 fL (7.4-10.4); Monocytes # (auto) 0.27 K/uL (0.11-0.59); Monocytes % (auto) 3.8 %; Neutrophils # (auto) 5.76 K/uL (1.4-6.5); Neutrophils % (auto) 82.1 %; Platelet Count 167 K/uL (130-400); RDW Coefficient of Variation 13.5 % (11.5-14.5); Red Blood Count 4.49 M/uL (4.2-5.4); White Blood Count 7.02 K/uL (4.8-10.8)
[2021-04-20 06:54] LABS: BUN Creatinine Ratio 22.5 (10-20); Calcium 8.2 mg/dl (8.5-10.1); Est GFR (African American) 87.6 ml/min; Est GFR (Non-African American) 75.5 ml/min; Potassium 3.8 mmol/L (3.5-5.1)
[2021-04-20] MEDS: PANTOprazole 40 MG TAB PO SCH (07:01)
[2021-04-20] MEDS: FLUTICASONE/VILANTEROL 100/25MCG 14 PUFFS/INHALER INH SCH (07:01)
[2021-04-20] MEDS: dexAMETHasone 6 MG in SYRINGE 0 ML IV SCH (07:01)
[2021-04-20] MEDS: guaiFENesin 600 MG TABCR PO SCH ×2 (08:22→20:18)
[2021-04-20] MEDS: estradioL 1 MG TAB PO SCH (08:22)
[2021-04-20] MEDS: lisinopril 10 MG TAB PO SCH (08:22)
[2021-04-20] MEDS: CITALOPRAM 20 MG TAB PO SCH (08:22)
[2021-04-20] MEDS: medroxyPROGESTERone ACETATE 10 MG TAB PO SCH (08:22)
[2021-04-20] MEDS ORDERED: ALBUT/IPRATROP 3MG/0.5MG NEB 3 ML VIAL NEB PRN (14:20)
--- NOTE | 2021-04-20 14:27 | Hospitalist Progress Note ---
Date of Service April 20, 2021 Assessment & Plan (1) COVID-19: Plan: 50yo female presenting with Covid-19 infection. Symptoms began approximately 10-11 days prior to admission. She remains afebrile, HD stable at this point. Hypoxic in the ER requiring placement of 2L O2 by NC. Patient has been using her CPAP during the day at home due to feelings of dyspnea and inability to take a full breath. Leukopenic with lymphopenia, procalcitonin negative Laboratory values otherwise unremarkable Still with poor appetite, intermittently requiring oxygen to keep pulse ox greater than 88% even with CPAP on while sleeping. With some intermittent nausea but no vomiting. -Continued stay -Maintain isolation precautions -Continue dexamethasone 6mg IV daily -Lovenox 40mg SQ BID for DVT prophylaxis -Continue Tessalon, Mucincex, Tylenol and DuoNebs -Incentive spirometer q 2 hours while awake -CPAP q HS and with naps - patient may use her own machine -Check overnight sleep study tonight to see if needs oxygen nocturnally with her CPAP when she goes home hopefully tomorrow -will need a two-step walk test prior to discharge to see if she needs oxygen with exertion, but currently does not need any at rest -Continue Zofran as needed for nausea (2) Pneumonia due to COVID-19 virus: Plan: COVID Pneumonia Chest x-ray shows bibasilar and left midlung opacities consistent with pneumonia Procalcitonin negative-this is a viral pneumonia Continue supportive care and dexamethasone as above (3) Hypoxia: Plan: Acute respiratory failure with hypoxia secondary to Covid-19 pneumonia Continue dexamethasone, supplemental O2 as above (4) Nausea: Plan: Zofran as needed Likely secondary to Covid-19 Abdomen is soft, nontender Last bowel movement 2 days ago and really has had poor p.o. intake Continue Protonix as is on steroids (5) Asthma: Plan: No wheezing appreciated on exam. She reports seasonal flare of her asthma typically around this time of year - may be playing a part in her overall feeling of dyspnea -Continue duo nebs -Continue Breo -Dexamethasone 6mg IV daily Received 1 g of magnesium sulfate upon admission Supplemental O2 as needed as above (6) GERD (gastroesophageal reflux disease): Plan: Chronic. Stable -Protonix while inpatient (7) Depression: Plan: Chronic. Stable. Patient does appear slightly anxious re: current health situation -Continue Citalopram (8) NIKUNJ on CPAP: Plan: CPAP qHS and with naps Overnight sleep study as above to see if needs O2 with CPAP (9) Obesity: Plan: BMI 46 Needs weight loss This is a risk factor for severe Covid disease Plan: Ppx - Lovenox 40 BID while inpatient, and will plan to send her home with Xarelto 10 mg daily as an outpatient especially as she is on daily estradiol which puts her at even higher risk of VTE given obesity, Covid-19, and hypoxia with prolonged immobility due to hospitalization and infectious illness Code - Full Dispo -continued stay on medical/surgical floor in Covid unit, but hopeful for discharge home tomorrow, may need nocturnal O2 and will do a two-step walk test in the morning Admission and Anticipated Discharge Date Admission Date: April 19, 2021 Anticipated date of discharge: 04/21/21 Subjective Patient reports having nausea this morning but did not vomit. No abdominal pain. Last bowel movement was 2 days ago. She reports that now the nausea has improved. She reports her sense of taste and smell are completely gone and that she has very poor appetite. She had a "rough" night, but is not sure why. She did require oxygen to be bled into her CPAP. She is able to ambulate around the room. Her pulse ox is 90% at rest but she is wearing oxygen when I saw her while she is proning and taking a nap. Denies chest pains. Review of Systems Review of Systems: All systems reviewed & are unremarkable except as noted in HPI & below Physical Exam Constitutional: WD/WN, vitals as above + obese Eyes: + anicteric sclerae Neck: trachea midline, no thyromegaly Respiratory: normal respiratory effort; no cough Auscultation: + crackles (At left base); no rhonchi and no wheezes Cardiovascular: RRR, no murmur, no edema Chest (Breasts): Chest: normal inspection of chest Gastrointestinal (Abdomen): normal bowel sounds, soft, nontender, no hepatosplenomegaly Musculoskeletal: Extremities: extremities normal to inspection; no cyanosis and no clubbing Skin: no rashes, warm and dry Neurologic: moves all extremities and awake; no focal motor deficits Psychiatric: A+Ox3, euthymic affect Lymphatic: no lymphedema Results & Data Results & Data ([facility]) Vital Signs (Past 12 Hours) Vital Signs Pulse Pulse Resp BP Pulse Ox 04/20/21 11:21 76 18 91 04/20/21 07:06 94 H 22 106/73 95 04/20/21 07:04 88 18 95 04/20/21 03:44 79 18 92 04/20/21 03:17 74 18 85 L Laboratory Results 04/20/21 04/20/21 Range/Units 05:44 05:44 WBC 7.02 (4.8-10.8) K/uL RBC 4.49 (4.2-5.4) M/uL Hgb 13.8 (12.0-16.0) g/dL Hct 42.3 (37-47) % MCV 94.2 (80-100) fL MCH 30.7 (25-34) pg MCHC 32.6 (32-36) g/dL RDW Std Deviation 47.0 H (36.4-46.3) fL RDW Coeff of Yoandy 13.5 (11.5-14.5) % Plt Count 167 (130-400) K/uL MPV 10.2 (7.4-10.4) fL Immature Gran % (Auto) 0.4 % Neut % (Auto) 82.1 % Lymph % (Auto) 13.7 % [place] % (Auto) 3.8 % Eos % (Auto) 0.0 % Baso % (Auto) 0.0 % Neut # (Auto) 5.76 (1.4-6.5) K/uL Lymph # (Auto) 0.96 L (1.2-3.4) K/uL [place] # (Auto) 0.27 (0.11-0.59) K/uL Eos # (Auto) 0.00 (0-0.5) K/uL Baso # (Auto) 0.00 (0-0.2) K/uL Immature Gran # (Auto) 0.03 H (0.00-0.02) K/uL Sodium 136 (136-145) mmol/L Potassium 3.8 (3.5-5.1) mmol/L Chloride 103 (98-107) mmol/L Carbon Dioxide 29 (21-32) mmol/L Anion Gap 4.0 (3-11) BUN 20 H (7-18) mg/dl Creatinine 0.88 (0.6-1.2) mg/dl Est Cr Clr Drug Dosing 86.0 ml/min Est GFR ( Amer) 87.6 ml/min Est GFR (Non-Af Amer) 75.5 ml/min BUN/Creatinine Ratio 22.5 H (10-20) Glucose 129 H (70-99) mg/dl Calcium 8.2 L (8.5-10.1) mg/dl PG Care Time/CCT Total # of Minutes Spent Total Time Spent with Patient: Total time spent is greater than 50% in coordination of care (as documented) at patient's floor/unit and/or counseling patient: Coding Level of Care Code 04852 Subseq Hosp Care Lvl 3 Diagnoses COVID-19 U07.1 Asthma J45.909 GERD (gastroesophageal reflux disease) K21.9 Depression F32.9 NIKUNJ on CPAP G47.33; Z99.89 Hypoxia R09.02 Nausea R11.0 Pneumonia due to COVID-19 virus U07.1; J12.82 Obesity E66.9
[2021-04-21] MEDS: ACETAMINOPHEN 325 MG TAB PO PRN ×3 (01:14→22:46)
[2021-04-21] MEDS: ONDANSETRON INJ 2 MG/ML 2 ML VIAL IV PRN ×3 (02:18→22:47)
[2021-04-21] MEDS: ENOXAPARIN INJ 40 MG/0.4 ML SYR SQ SCH ×2 (06:17→16:53)
[2021-04-21] MEDS: dexAMETHasone 6 MG in SYRINGE 0 ML IV SCH (09:29)
[2021-04-21] MEDS: estradioL 1 MG TAB PO SCH (09:31)
[2021-04-21] MEDS: FLUTICASONE/VILANTEROL 100/25MCG 14 PUFFS/INHALER INH SCH (09:31)
[2021-04-21] MEDS: medroxyPROGESTERone ACETATE 10 MG TAB PO SCH (09:31)
[2021-04-21] MEDS: PANTOprazole 40 MG TAB PO SCH ×2 (09:32→22:45)
[2021-04-21] MEDS: guaiFENesin 600 MG TABCR PO SCH ×2 (09:32→20:31)
[2021-04-21] MEDS: CITALOPRAM 20 MG TAB PO SCH (09:32)
[2021-04-21] MEDS: lisinopril 10 MG TAB PO SCH (09:32)
[2021-04-21] MEDS: BENZONATATE 100 MG CAPSULE PO PRN (16:45)
--- NOTE | 2021-04-21 17:12 | Hospitalist Progress Note ---
Date of Service April 21, 2021 Assessment & Plan (1) COVID-19: Plan: 50yo female presenting with Covid-19 infection. Symptoms began approximately 10-11 days prior to admission. She remains afebrile, HD stable at this point. Hypoxic in the ER requiring placement of 2L O2 by [place]. Patient has been using her CPAP during the day at home due to feelings of dyspnea and inability to take a full breath. Leukopenic with lymphopenia, procalcitonin negative Laboratory values otherwise unremarkable Still with poor appetite, with worsening hypoxia on 04/21-requiring 2 L continuously and 3 L with exertion With some intermittent nausea but no vomiting. -Continued stay -Maintain isolation precautions -Continue dexamethasone 6mg IV daily -Lovenox 40mg SQ BID for DVT prophylaxis -Continue Tessalon but increase dose to 200 and make scheduled 3 times daily as she forgets to ask for it, Mucincex, Tylenol and DuoNebs-make DuoNeb scheduled again as she feels this really helped her -Incentive spirometer q 2 hours while awake -CPAP q HS and with naps - patient may use her own machine -Two-step walk test on 04/21 shows need for 2 L nasal cannula at rest and 3 L with exertion -Continue Zofran as needed for nausea to help her prone as she reports proning makes her nauseated -Increase Protonix to 40 mg p.o. twice daily for nausea which may be related to IV steroids (2) Pneumonia due to COVID-19 virus: Plan: COVID Pneumonia Chest x-ray shows bibasilar and left midlung opacities consistent with pneumonia Procalcitonin negative-this is a viral pneumonia Continue supportive care and dexamethasone as above -Check chest x-ray in the morning (3) Hypoxia: Plan: Acute respiratory failure with hypoxia secondary to Covid-19 pneumonia Continue dexamethasone, supplemental O2 as above (4) Nausea: Plan: Zofran as needed Likely secondary to Covid-19, but could be worsened by IV Decadron Abdomen is soft, nontender Last bowel movement 3 days ago and really has had poor p.o. intake Continue Protonix as is on steroids but increase to twice daily (5) Asthma: Plan: No wheezing appreciated on exam. She reports seasonal flare of her asthma typically around this time of year - may be playing a part in her overall feeling of dyspnea -Continue duo nebs and make them scheduled again as she was not receiving any while they were made as needed -Continue Breo -Dexamethasone 6mg IV daily Received 1 g of magnesium sulfate upon admission Supplemental O2 as needed as above (6) GERD (gastroesophageal reflux disease): Plan: Chronic. Stable -Protonix while inpatient (7) Depression: Plan: Chronic. Stable. Patient does appear slightly anxious re: current health situation -Continue Citalopram (8) NIKUNJ on CPAP: Plan: CPAP qHS and with naps (9) Obesity: Plan: BMI 46 Needs weight loss This is a risk factor for severe Covid disease Plan: Ppx - Lovenox 40 BID while inpatient, and will plan to send her home with Xarelto 10 mg daily as an outpatient especially as she is on daily estradiol which puts her at even higher risk of VTE given obesity, Covid-19, and hypoxia with prolonged immobility due to hospitalization and infectious illness Code - Full Dispo -continued stay on medical/surgical floor in Covid unit, but hopeful for discharge home tomorrow if feeling improved, will need home O2 Admission and Anticipated Discharge Date Admission Date: April 19, 2021 Subjective Patient reports having a bad day. She feels generally weak all over, and feels that her breathing is worse. She is afraid to take a deep breath as she thinks it will cause her to cough more. She is not eating much and feels very tired. She did a two-step walk test today and needed 2 L at rest and 3 L with exertion which is worse than yesterday when she was on room air in the morning. She also had a nocturnal sleep study that showed that she required 2 L nasal cannula with her CPAP Review of Systems Review of Systems: All systems reviewed & are unremarkable except as noted in HPI & below No bowel movement in 3 days Physical Exam Constitutional: WD/WN, vitals as above + obese Eyes: + anicteric sclerae Neck: trachea midline, no thyromegaly Respiratory: + abnormal respiratory effort (Splinting, not taking deep breaths) and no cough Auscultation: no crackles, no rhonchi and no wheezes Cardiovascular: RRR, no murmur, no edema Chest (Breasts): Chest: normal inspection of chest Gastrointestinal (Abdomen): normal bowel sounds, soft, nontender, no hepatosplenomegaly Musculoskeletal: Extremities: extremities normal to inspection; no cyanosis and no clubbing Skin: no rashes, warm and dry Neurologic: moves all extremities and awake; no focal motor deficits Psychiatric: Orientation: alert and oriented x 3 Affect: + flat affect Lymphatic: no lymphedema Results & Data Results & Data ([facility]) Vital Signs (Past 12 Hours) Vital Signs Temp Pulse Pulse Pulse Pulse Pulse Pulse 04/21/21 16:57 80 04/21/21 11:04 92 H 94 H 101 H 89 96 H 04/21/21 08:05 04/21/21 08:00 04/21/21 07:40 37.2 C 79 Resp Resp Resp Resp Resp Resp BP 04/21/21 16:57 18 04/21/21 11:04 20 20 22 20 20 04/21/21 08:05 04/21/21 08:00 04/21/21 07:40 19 118/76 Pulse Ox Pulse Ox Pulse Ox Pulse Ox Pulse Ox Pulse Ox 04/21/21 16:57 93 04/21/21 11:04 91 93 86 L 93 85 L 04/21/21 08:05 94 04/21/21 08:00 83 L 04/21/21 07:40 91 PG Care Time/CCT Total # of Minutes Spent Total Time Spent with Patient: Total time spent is greater than 50% in coordination of care (as documented) at patient's floor/unit and/or counseling patient: Coding Level of Care Code 96820 Subseq Hosp Care Lvl 3 Diagnoses COVID-19 U07.1 Pneumonia due to COVID-19 virus U07.1; J12.82 Hypoxia R09.02 Nausea R11.0 Asthma J45.909 GERD (gastroesophageal reflux disease) K21.9 Depression F32.9 NIKUNJ on CPAP G47.33; Z99.89 Obesity E66.9
[2021-04-21] MEDS: BENZONATATE 100 MG CAPSULE PO SCH (22:46)
[2021-04-21] MEDS: ALBUT/IPRATROP 3MG/0.5MG NEB 3 ML VIAL NEB SCH (23:58)
[2021-04-22] MEDS: ENOXAPARIN INJ 40 MG/0.4 ML SYR SQ SCH ×2 (05:40→18:25)
[2021-04-22 06:44] LABS: Basophils # (auto) 0.01 K/uL (0-0.2); Basophils % (auto) 0.2 %; Hematocrit (blood only) 39.3 % (37-47); Hemoglobin 13.1 g/dL (12.0-16.0); Immature Granulocytes # (auto) 0.01 K/uL (0.00-0.02); Immature Granulocytes % (auto) 0.2 %; Lymphocytes # (auto) 0.84 K/uL (1.2-3.4); Lymphocytes % (auto) 15.2 %; Mean Corpuscular Hemoglobin 30.6 pg (25-34); Mean Corpuscular Hgb Conc 33.3 g/dL (32-36); Mean Corpuscular Volume 91.8 fL (80-100); Mean Platelet Volume 9.7 fL (7.4-10.4); Monocytes # (auto) 0.19 K/uL (0.11-0.59); Monocytes % (auto) 3.4 %; Neutrophils # (auto) 4.48 K/uL (1.4-6.5); Platelet Count 136 K/uL (130-400); RDW Coefficient of Variation 13.5 % (11.5-14.5); RDW Standard Deviation 44.8 fL (36.4-46.3); Red Blood Count 4.28 M/uL (4.2-5.4); White Blood Count 5.53 K/uL (4.8-10.8)
[2021-04-22 07:28] LABS: Albumin Level 2.9 gm/dl (3.4-5.0); BUN Creatinine Ratio 22.7 (10-20); C Reactive Protein 8.04 mg/dl (0-0.29); Calcium 8.3 mg/dl (8.5-10.1); Creatinine Clr Calc Pharmacy 106.6 ml/min; Est GFR (African American) 113.5 ml/min; Est GFR (Non-African American) 97.9 ml/min; Magnesium 2.5 mg/dl (1.8-2.4); Potassium 3.6 mmol/L (3.5-5.1)
[2021-04-22] MEDS: ALBUT/IPRATROP 3MG/0.5MG NEB 3 ML VIAL NEB SCH ×4 (07:30→19:47)
[2021-04-22 07:31] LABS: Albumin Globulin Ratio 0.8 (0.9-2); Bilirubin,Total 0.5 mg/dl (0.2-1); Globulin 3.6 gm/dl (2.5-4.0); Total Protein 6.5 gm/dl (6.4-8.2)
[2021-04-22] MEDS: dexAMETHasone 6 MG in SYRINGE 0 ML IV SCH (07:44)
[2021-04-22] MEDS: BENZONATATE 100 MG CAPSULE PO SCH ×3 (07:45→19:30)
[2021-04-22] MEDS: PANTOprazole 40 MG TAB PO SCH ×2 (07:46→19:30)
[2021-04-22] MEDS: estradioL 1 MG TAB PO SCH (07:46)
[2021-04-22] MEDS: guaiFENesin 600 MG TABCR PO SCH (07:46)
[2021-04-22] MEDS: CITALOPRAM 20 MG TAB PO SCH (07:46)
[2021-04-22] MEDS: medroxyPROGESTERone ACETATE 10 MG TAB PO SCH (07:47)
[2021-04-22] MEDS: lisinopril 10 MG TAB PO SCH (07:47)
[2021-04-22] MEDS: FLUTICASONE/VILANTEROL 100/25MCG 14 PUFFS/INHALER INH SCH (07:47)
[2021-04-22] MEDS: ACETAMINOPHEN 325 MG TAB PO PRN ×2 (07:52→19:30)
[2021-04-22] MEDS: ONDANSETRON INJ 2 MG/ML 2 ML VIAL IV PRN ×3 (07:52→23:56)
--- NOTE | 2021-04-22 09:08 | XRay Report ---
XR chest 1V portable HISTORY: Worsening hypoxia, Covid COMPARISON: Chest 04/18/2021. FINDINGS: Low lung volumes with mild elevation of the right hemidiaphragm. The heart is normal in siz e. Interstitial thickening with patchy bilateral mid to lower lung zone hazy airspace opacities have slightly progressed. No pleural fusions. No pneumothorax. IMPRESSION: Interstitial thickening with patchy hazy airspace opacities within the mid to lower lung zones. This has progressed in the interval and likely represents a viral pneumonia. ACT 112: Negative or not required by law. Electronically signed by: Elmer Edwards M.D. 04/22/2021 9:07 AM
--- NOTE | 2021-04-22 12:04 | Hospitalist Progress Note ---
Date of Service April 22, 2021 Assessment & Plan (1) COVID-19: Plan: 50yo female presenting with Covid-19 infection. Symptoms began approximately 10-11 days prior to admission. She remains afebrile, HD stable at this point. Hypoxic in the ER requiring placement of 2L O2 by [place]. Patient has been using her CPAP during the day at home due to feelings of dyspnea and inability to take a full breath. Leukopenic with lymphopenia, procalcitonin negative Laboratory values otherwise unremarkable Still with poor appetite, with worsening hypoxia on 04/21-requiring 2 L continuously and 3 L with exertion Is not able to lie prone much as it makes her nauseated Is fearful of coughing so is splinting With some intermittent nausea but no vomiting. -Continued stay -Maintain isolation precautions -Continue dexamethasone 6mg IV daily x10-day course -Lovenox 40mg SQ BID for DVT prophylaxis -Continue Tessalon 200 MG 3 times daily, and start scheduled Robitussin-DM 10 mL p.o. every 6 hours to suppress cough -Discontinue tablet Mucinex -Continue Tylenol and DuoNebs scheduled -Incentive spirometer q 2 hours while awake and also encouraged her to get out of bed to chair today, continue flutter valve -CPAP q HS and with naps - patient may use her own machine -Two-step walk test on 04/21 shows need for 2 L nasal cannula at rest and 3 L with exertion-we will have to repeat this prior to discharge as this expires -Continue Zofran as needed for nausea to help her prone as she reports proning makes her nauseated -Increased Protonix to 40 mg p.o. twice daily for nausea which may be related to IV steroids (2) Pneumonia due to COVID-19 virus: Plan: COVID Pneumonia Chest x-ray shows bibasilar and left midlung opacities consistent with pneumonia Chest x-ray 04/22 with slightly progressed mid and lower lobe pneumonia Procalcitonin negative-this is a viral pneumonia CRP is elevated at 8-we will recheck procalcitonin in the morning and could start antibiotics if becomes elevated Continue supportive care and dexamethasone as above -Follow chest x-ray periodically (3) Hypoxia: Plan: Acute respiratory failure with hypoxia secondary to Covid-19 pneumonia Continue dexamethasone, supplemental O2 as above (4) Nausea: Plan: Zofran as needed Likely secondary to Covid-19, but could be worsened by IV Decadron Abdomen is soft, nontender Last bowel movement 4 days ago and really has had poor p.o. intake Continue Protonix as is on steroids but increase to twice daily (5) Asthma: Plan: No wheezing appreciated on exam. She reports seasonal flare of her asthma typically around this time of year - may be playing a part in her overall feeling of dyspnea -Continue duo nebs and make them scheduled again as she was not receiving any while they were made as needed -Continue Breo -Dexamethasone 6mg IV daily Received 1 g of magnesium sulfate upon admission Supplemental O2 as needed as above (6) GERD (gastroesophageal reflux disease): Plan: Chronic. Stable -Protonix while inpatient (7) Depression: Plan: Chronic. Stable. Patient does appear slightly anxious re: current health situation -Continue Citalopram (8) NIKUNJ on CPAP: Plan: CPAP qHS and with naps (9) Obesity: Plan: BMI 46 Needs weight loss This is a risk factor for severe Covid disease Plan: Ppx - Lovenox 40 BID while inpatient, and will plan to send her home with Xarelto 10 mg daily as an outpatient especially as she is on daily estradiol which puts her at even higher risk of VTE given obesity, Covid-19, and hypoxia with prolonged immobility due to hospitalization and infectious illness Code - Full Dispo -continued stay on medical/surgical floor in Covid unit Discussed her care with her permission with her father on the phone Admission and Anticipated Discharge Date Admission Date: April 19, 2021 Subjective Patient remains on 2 L nasal cannula did desaturate to the 80s this morning. She is feeling very tired and again fearful to take deep breaths because of coughing and feels very short of breath with that. I encouraged her to get out of bed to the chair today. We will add on scheduled Robitussin-DM Review of Systems Review of Systems: All systems reviewed & are unremarkable except as noted in HPI & below Physical Exam Constitutional: WD/WN, vitals as above + obese Eyes: + anicteric sclerae Neck: trachea midline, no thyromegaly Respiratory: + abnormal respiratory effort (Splinting, not taking deep breaths) and no cough Auscultation: no crackles, no rhonchi and no wheezes Cardiovascular: RRR, no murmur, no edema Chest (Breasts): Chest: normal inspection of chest Gastrointestinal (Abdomen): normal bowel sounds, soft, nontender, no hepatosplenomegaly Musculoskeletal: Extremities: extremities normal to inspection; no cyanosis and no clubbing Skin: no rashes, warm and dry Neurologic: moves all extremities and awake; no focal motor deficits Psychiatric: Orientation: alert and oriented x 3 Affect: + flat affect Lymphatic: no lymphedema Results & Data Results & Data ([facility]) Vital Signs (Past 12 Hours) Vital Signs Temp Pulse Pulse Resp BP Pulse Ox 04/22/21 11:40 78 20 97 04/22/21 07:49 37.2 C 87 19 125/65 97 04/22/21 07:30 77 18 94 Laboratory Results 04/22/21 04/22/21 Range/Units 06:25 06:25 WBC 5.53 (4.8-10.8) K/uL RBC 4.28 (4.2-5.4) M/uL Hgb 13.1 (12.0-16.0) g/dL Hct 39.3 (37-47) % MCV 91.8 (80-100) fL MCH 30.6 (25-34) pg MCHC 33.3 (32-36) g/dL RDW Std Deviation 44.8 (36.4-46.3) fL RDW Coeff of Yoandy 13.5 (11.5-14.5) % Plt Count 136 (130-400) K/uL MPV 9.7 (7.4-10.4) fL Immature Gran % (Auto) 0.2 % Neut % (Auto) 81.0 % Lymph % (Auto) 15.2 % [place] % (Auto) 3.4 % Eos % (Auto) 0.0 % Baso % (Auto) 0.2 % Neut # (Auto) 4.48 (1.4-6.5) K/uL Lymph # (Auto) 0.84 L (1.2-3.4) K/uL [place] # (Auto) 0.19 (0.11-0.59) K/uL Eos # (Auto) 0.00 (0-0.5) K/uL Baso # (Auto) 0.01 (0-0.2) K/uL Immature Gran # (Auto) 0.01 (0.00-0.02) K/uL Sodium 136 (136-145) mmol/L Potassium 3.6 (3.5-5.1) mmol/L Chloride 104 (98-107) mmol/L Carbon Dioxide 27 (21-32) mmol/L Anion Gap 6.0 (3-11) BUN 16 (7-18) mg/dl Creatinine 0.71 (0.6-1.2) mg/dl Est Cr Clr Drug Dosing 106.6 ml/min Est GFR ( Amer) 113.5 ml/min Est GFR (Non-Af Amer) 97.9 ml/min BUN/Creatinine Ratio 22.7 H (10-20) Glucose 130 H (70-99) mg/dl Calcium 8.3 L (8.5-10.1) mg/dl Magnesium 2.5 H (1.8-2.4) mg/dl Total Bilirubin 0.5 (0.2-1) mg/dl AST 23 (15-37) U/L ALT 49 (12-78) U/L Alkaline Phosphatase 53 (45-117) U/L C-Reactive Protein 8.04 H (0-0.29) mg/dl Total Protein 6.5 (6.4-8.2) gm/dl Albumin 2.9 L (3.4-5.0) gm/dl Globulin 3.6 (2.5-4.0) gm/dl Albumin/Globulin Ratio 0.8 L (0.9-2) Diagnostic Findings Chest x-ray images personally reviewed by me and agree with the following report: Chest X-Ray 04/22/21 07:00 XR chest 1V portable HISTORY: Worsening hypoxia, Covid COMPARISON: Chest 04/18/2021. FINDINGS: Low lung volumes with mild elevation of the right hemidiaphragm. The heart is normal in size. Interstitial thickening with patchy bilateral mid to lower lung zone hazy airspace opacities have slightly progressed. No pleural fusions. No pneumothorax. IMPRESSION: Interstitial thickening with patchy hazy airspace opacities within the mid to lower lung zones. This has progressed in the interval and likely represents a viral pneumonia. ACT 112: Negative or not required by law. Electronically signed by: Elmer Edwards M.D. 04/22/2021 9:07 AM PG Care Time/CCT Total # of Minutes Spent Total Time Spent with Patient: Total time spent is greater than 50% in coordination of care (as documented) at patient's floor/unit and/or counseling patient: Coding Level of Care Code 69967 Subseq Hosp Care Lvl 3 Diagnoses COVID-19 U07.1 Pneumonia due to COVID-19 virus U07.1; J12.82 Hypoxia R09.02 Nausea R11.0 Asthma J45.909 GERD (gastroesophageal reflux disease) K21.9 Depression F32.9 NIKUNJ on CPAP G47.33; Z99.89 Obesity E66.9
[2021-04-22] MEDS: guaiFENesin/DEXTROM SYRUP 100MG/10MG 5ML UDC PO SCH ×3 (13:19→23:55)
[2021-04-23] MEDS: guaiFENesin/DEXTROM SYRUP 100MG/10MG 5ML UDC PO SCH ×3 (06:05→18:16)
[2021-04-23] MEDS: ACETAMINOPHEN 325 MG TAB PO PRN ×2 (06:05→18:16)
[2021-04-23] MEDS: ENOXAPARIN INJ 40 MG/0.4 ML SYR SQ SCH ×2 (06:05→18:16)
[2021-04-23] MEDS: ONDANSETRON INJ 2 MG/ML 2 ML VIAL IV PRN ×2 (06:06→18:16)
[2021-04-23 06:59] LABS: Basophils # (auto) 0.01 K/uL (0-0.2); Basophils % (auto) 0.2 %; Hematocrit (blood only) 38.5 % (37-47); Hemoglobin 12.7 g/dL (12.0-16.0); Immature Granulocytes # (auto) 0.02 K/uL (0.00-0.02); Immature Granulocytes % (auto) 0.4 %; Lymphocytes # (auto) 0.81 K/uL (1.2-3.4); Lymphocytes % (auto) 14.9 %; Mean Corpuscular Volume 93.9 fL (80-100); Monocytes # (auto) 0.31 K/uL (0.11-0.59); Monocytes % (auto) 5.7 %; Neutrophils # (auto) 4.27 K/uL (1.4-6.5); Neutrophils % (auto) 78.8 %; Platelet Count 176 K/uL (130-400); RDW Coefficient of Variation 13.5 % (11.5-14.5); RDW Standard Deviation 46.8 fL (36.4-46.3); White Blood Count 5.42 K/uL (4.8-10.8)
[2021-04-23 07:29] LABS: Albumin Level 2.7 gm/dl (3.4-5.0); BUN Creatinine Ratio 24.7 (10-20); C Reactive Protein 6.55 mg/dl (0-0.29); Calcium 8.5 mg/dl (8.5-10.1); Creatinine Clr Calc Pharmacy 114.7 ml/min; Est GFR (African American) 117.7 ml/min; Est GFR (Non-African American) 101.6 ml/min; Potassium 3.7 mmol/L (3.5-5.1)
[2021-04-23] MEDS: ALBUT/IPRATROP 3MG/0.5MG NEB 3 ML VIAL NEB SCH ×4 (07:35→20:36)
[2021-04-23 07:44] LABS: Albumin Globulin Ratio 0.7 (0.9-2); Bilirubin,Total 0.6 mg/dl (0.2-1); Globulin 3.7 gm/dl (2.5-4.0); Total Protein 6.4 gm/dl (6.4-8.2)
[2021-04-23] MEDS: PANTOprazole 40 MG TAB PO SCH ×2 (09:05→20:32)
[2021-04-23] MEDS: BENZONATATE 100 MG CAPSULE PO SCH ×3 (09:05→20:32)
[2021-04-23] MEDS: estradioL 1 MG TAB PO SCH (09:06)
[2021-04-23] MEDS: dexAMETHasone 6 MG in SYRINGE 0 ML IV SCH (09:06)
[2021-04-23] MEDS: lisinopril 10 MG TAB PO SCH (09:07)
[2021-04-23] MEDS: CITALOPRAM 20 MG TAB PO SCH (09:07)
[2021-04-23] MEDS: FLUTICASONE/VILANTEROL 100/25MCG 14 PUFFS/INHALER INH SCH (09:07)
[2021-04-23] MEDS: medroxyPROGESTERone ACETATE 10 MG TAB PO SCH (09:08)
--- NOTE | 2021-04-23 19:31 | Hospitalist Progress Note ---
Date of Service April 23, 2021 Assessment & Plan (1) COVID-19: Plan: 50yo female presenting with Covid-19 infection. Symptoms began approximately 10-11 days prior to admission. She remains afebrile, HD stable at this point. Hypoxic in the ER requiring placement of 2L O2 by [place]. Patient has been using her CPAP during the day at home due to feelings of dyspnea and inability to take a full breath. Leukopenic with lymphopenia, procalcitonin negative Laboratory values otherwise unremarkable Her appetite is improving, has more energy and started getting out of bed to chair on 04/22 Initially only requiring room air to 1 L nasal cannula, but with worsening hyp oxia on 04/21-requiring 2 L continuously and 3 L with exertion. Now requiring 2 to 3 L at rest on 04/23 Nausea is improving and she is now able to lie prone more often Was fearful of coughing and thus was splinting-this is improved with increasing use of antitussives -Continue dexamethasone 6mg IV daily x10-day course -Lovenox 40mg SQ BID for DVT prophylaxis -Continue Tessalon 200 MG 3 times daily, and scheduled Robitussin-DM 10 mL p.o. every 6 hours to suppress cough -Continue Tylenol and DuoNebs scheduled -Incentive spirometer q 2 hours while awake and continued to encourage her to get out of bed to chair, continue flutter valve -CPAP q HS and with naps - patient may use her own machine -Two-step walk test on 04/21 shows need for 2 L nasal cannula at rest and 3 L with exertion-we will have to repeat this prior to discharge as this expires -Continue Zofran as needed for nausea to help her prone as she reports proning makes her nauseated -Increased Protonix to 40 mg p.o. twice daily for nausea which may be related to IV steroids (2) Pneumonia due to COVID-19 virus: Plan: CDS: COVID Pneumonia Chest x-ray shows bibasilar and left midlung opacities consistent with pneumonia Chest x-ray 04/22 with slightly progressed mid and lower lobe pneumonia Procalcitonin negative-this is a viral pneumonia CRP is elevated at 8 and now trending downward to 6-she did not meet criteria for tocilizumab as she is only requiring 2 to 3 L nasal cannula and is beyond 72 hours since admission - procalcitonin remains negative-no need for antibiotics -Continue supportive care and dexamethasone as above -Follow chest x-ray periodically (3) Hypoxia: Plan: Acute respiratory failure with hypoxia secondary to Covid-19 pneumonia Continue dexamethasone, supplemental O2 as above (4) Nausea: Plan: Improved Zofran as needed Likely secondary to Covid-19, but could be worsened by IV Decadron and constipation which is now improving Abdomen is soft, nontender Now with bowel movement on 04/22 Continue Protonix twice daily (5) Asthma: Plan: No wheezing appreciated on exam. She reports seasonal flare of her asthma typic ally around this time of year - may be playing a part in her overall feeling of dyspnea -Continue duo nebs -Continue Breo -Dexamethasone 6mg IV daily Received 1 g of magnesium sulfate upon admission Supplemental O2 as needed as above (6) GERD (gastroesophageal reflux disease): Plan: Chronic -Protonix (7) Depression: Plan: Chronic. Stable. Continues to be somewhat anxious re: current health situation, but this is improving on 04/23 -Continue Citalopram (8) NIKUNJ on CPAP: Plan: CPAP qHS and with naps (9) Obesity: Plan: BMI 46 Needs weight loss This is a risk factor for severe Covid disease Plan: Ppx - Lovenox 40 BID while inpatient, and recommend sending her home with Xarelto 10 mg daily as an outpatient especially as she is on daily estradiol which puts her at even higher risk of VTE given obesity, Covid-19, and hypoxia with prolonged immobility due to hospitalization and infectious illness Code - Full Dispo -continued stay on medical/surgical floor in Covid unit, likely to stay at least 1-2 more days Admission and Anticipated Discharge Date Admission Date: April 19, 2021 Subjective Pt feels a little better today than yesterday. Is proning more, less nauseated, moved her bowels yesterday and was out of bed to a chair. Still requiring 2 to 3 L nasal cannula but does feel like she can take a deeper breath today. She is still quite fatigued and appetite is down. Nurse reports that she did not desaturate when they rolled her over to prone position today like she did yesterday. Review of Systems Review of Systems: All systems reviewed & are unremarkable except as noted in HPI & below Physical Exam Constitutional: WD/WN, vitals as above + obese Eyes: + anicteric sclerae Neck: trachea midline, no thyromegaly Respiratory: normal respiratory effort; no cough Auscultation: + diminished lung sounds (At the bases); no crackles, no rhonchi and no wheezes Cardiovascular: RRR, no murmur, no edema Chest (Breasts): Chest: normal inspection of chest Gastrointestinal (Abdomen): normal bowel sounds, soft, nontender, no hepatosplenomegaly Musculoskeletal: Extremities: extremities normal to inspection; no cyanosis and no clubbing Skin: no rashes, warm and dry Neurologic: moves all extremities and awake; no focal motor deficits Psychiatric: Orientation: alert and oriented x 3 Affect: + flat affect Lymphatic: no lymphedema Results & Data Results & Data ([facility]) Vital Signs (Past 12 Hours) Vital Signs Temp Pulse Resp BP Pulse Ox 04/23/21 15:27 66 18 94 04/23/21 15:10 36.7 C 64 19 109/75 96 04/23/21 11:50 78 18 94 04/23/21 07:36 54 L 18 95 Laboratory Results 04/23/21 04/23/21 04/23/21 Range/Units 05:44 05:44 05:44 WBC 5.42 (4.8-10.8) K/uL RBC 4.10 L (4.2-5.4) M/uL Hgb 12.7 (12.0-16.0) g/dL Hct 38.5 (37-47) % MCV 93.9 (80-100) fL MCH 31.0 (25-34) pg MCHC 33.0 (32-36) g/dL RDW Std Deviation 46.8 H (36.4-46.3) fL RDW Coeff of Yoandy 13.5 (11.5-14.5) % Plt Count 176 (130-400) K/uL MPV 10.0 (7.4-10.4) fL Immature Gran % (Auto) 0.4 % Neut % (Auto) 78.8 % Lymph % (Auto) 14.9 % [place] % (Auto) 5.7 % Eos % (Auto) 0.0 % Baso % (Auto) 0.2 % Neut # (Auto) 4.27 (1.4-6.5) K/uL Lymph # (Auto) 0.81 L (1.2-3.4) K/uL [place] # (Auto) 0.31 (0.11-0.59) K/uL Eos # (Auto) 0.00 (0-0.5) K/uL Baso # (Auto) 0.01 (0-0.2) K/uL Immature Gran # (Auto) 0.02 (0.00-0.02) K/uL Sodium 137 (136-145) mmol/L Potassium 3.7 (3.5-5.1) mmol/L Chloride 103 (98-107) mmol/L Carbon Dioxide 29 (21-32) mmol/L Anion Gap 4.0 (3-11) BUN 16 (7-18) mg/dl Creatinine 0.66 (0.6-1.2) mg/dl Est Cr Clr Drug Dosing 114.7 ml/min Est GFR ( Amer) 117.7 ml/min Est GFR (Non-Af Amer) 101.6 ml/min BUN/Creatinine Ratio 24.7 H (10-20) Glucose 128 H (70-99) mg/dl Calcium 8.5 (8.5-10.1) mg/dl Total Bilirubin 0.6 (0.2-1) mg/dl AST 16 (15-37) U/L ALT 40 (12-78) U/L Alkaline Phosphatase 53 (45-117) U/L C-Reactive Protein 6.55 H (0-0.29) mg/dl Total Protein 6.4 (6.4-8.2) gm/dl Albumin 2.7 L (3.4-5.0) gm/dl Globulin 3.7 (2.5-4.0) gm/dl Albumin/Globulin Ratio 0.7 L (0.9-2) Procalcitonin 0.08 (0-0.5) ng/ml PG Care Time/CCT Total # of Minutes Spent Total Time Spent with Patient: Total time spent is greater than 50% in c oordination of care (as documented) at patient's floor/unit and/or counseling patient: Coding Level of Care Code 20414 Subseq Hosp Care Lvl 3 Diagnoses COVID-19 U07.1 Pneumonia due to COVID-19 virus U07.1; J12.82 Hypoxia R09.02 Nausea R11.0 Asthma J45.909 GERD (gastroesophageal reflux disease) K21.9 Depression F32.9 NIKUNJ on CPAP G47.33; Z99.89 Obesity E66.9
[2021-04-24] MEDS: guaiFENesin/DEXTROM SYRUP 100MG/10MG 5ML UDC PO SCH ×4 (01:52→18:10)
[2021-04-24] MEDS: ENOXAPARIN INJ 40 MG/0.4 ML SYR SQ SCH ×2 (06:32→18:04)
[2021-04-24] MEDS: ALBUT/IPRATROP 3MG/0.5MG NEB 3 ML VIAL NEB SCH ×4 (07:17→19:17)
[2021-04-24] MEDS: BENZONATATE 100 MG CAPSULE PO SCH ×3 (08:35→21:30)
[2021-04-24] MEDS: PANTOprazole 40 MG TAB PO SCH ×2 (08:37→21:31)
[2021-04-24] MEDS: medroxyPROGESTERone ACETATE 10 MG TAB PO SCH (08:38)
[2021-04-24] MEDS: CITALOPRAM 20 MG TAB PO SCH (08:38)
[2021-04-24] MEDS: lisinopril 10 MG TAB PO SCH (08:39)
[2021-04-24] MEDS: estradioL 1 MG TAB PO SCH (08:39)
[2021-04-24] MEDS: FLUTICASONE/VILANTEROL 100/25MCG 14 PUFFS/INHALER INH SCH (08:40)
[2021-04-24] MEDS: dexAMETHasone 6 MG in SYRINGE 0 ML IV SCH (08:40)
--- NOTE | 2021-04-24 10:47 | Hospitalist Progress Note ---
Date of Service April 24, 2021 Assessment & Plan (1) COVID-19: Plan: 50yo female presenting with Covid-19 infection. Symptoms began approximately 10-11 days prior to admission. Her appetite is improving, has more energy and started getting out of bed to chair on 04/22, she feels like she really turned the corner on 04/23 stable on 2L NC, laying prone, coughing less give Lasix 20mg IV x 1 today and look for response -Continue dexamethasone 6mg IV daily x10-day course -Lovenox 40mg SQ BID for DVT prophylaxis -Continue Tessalon 200 MG 3 times daily, and scheduled Robitussin-DM 10 mL p.o. every 6 hours to suppress cough -stop scheduled nebs -Incentive spirometer q 2 hours while awake and continued to encourage her to get out of bed to chair, continue flutter valve -CPAP q HS and with naps - patient may use her own machine 2 step prior to discharge, anticipate ready in 2 days (2) Pneumonia due to COVID-19 virus: Plan: CDS: COVID Pneumonia Chest x-ray shows bibasilar and left midlung opacities consistent with pneumonia Chest x-ray 04/22 with slightly progressed mid and lower lobe pneumonia Procalcitonin negative-this is a viral pneumonia CRP is elevated at 8 and now trending downward to 6-she did not meet criteria for tocilizumab as she is only requiring 2 to 3 L nasal cannula and is beyond 72 hours since admission - procalcitonin remains negative-no need for antibiotics -Continue supportive care and dexamethasone as above no need for repeat CXR unless she gets worse (3) Hypoxia: Plan: Acute respiratory failure with hypoxia secondary to Covid-19 pneumonia Continue dexamethasone, supplemental O2 as above stable on 2L, give Lasix for negative fluid balance, see if we can get her to room air (4) Nausea: Plan: Improved Zofran as needed Likely secondary to Covid-19, but could be worsened by IV Decadron and constipat ion which is now improving Abdomen is soft, nontender Now with bowel movement on 04/22 Continue Protonix twice daily (5) Asthma: Plan: No wheezing appreciated on exam. She reports seasonal flare of her asthma typically around this time of year - may be playing a part in her overall feeling of dyspnea -Continue duo nebs -Continue Breo -Dexamethasone 6mg IV daily Received 1 g of magnesium sulfate upon admission Supplemental O2 as needed as above (6) GERD (gastroesophageal reflux disease): Plan: Chronic -Protonix (7) Depression: Plan: Chronic. Stable. Continues to be somewhat anxious re: current health situation, but this is improving on 04/23 -Continue Citalopram (8) NIKUNJ on CPAP: Plan: CPAP qHS and with naps (9) Obesity: Plan: BMI 46 Needs weight loss This is a risk factor for severe Covid disease Plan: Ppx - Lovenox 40 BID while inpatient, and recommend sending her home with Xarelto 10 mg daily as an outpatient especially as she is on daily estradiol which puts her at even higher risk of VTE given obesity, Covid-19, and hypoxia with prolonged immobility due to hospitalization and infectious illness Code - Full Dispo -continued stay on medical/surgical floor in Covid unit, likely to stay 2 more days Admission and Anticipated Discharge Date Admission Date: April 19, 2021 Subjective patient feels like she got "over the hump" yesterday down to 2-3L NC, she slept prone last night, turned supine around 6am and fell back to sleep appetite is coming back, drinking a lot more, no fever/chills, + fatigue she is able to take deeper breaths now, flutter valve and inc spirometer helping had a BM yesterday her son is at college, she does not want him to know that she is hospitalized her is in [place] on hunting trip, he knows she is in the hospital, they are speaking every day, he is monitoring himself for symptoms discussed that she is getting close to leaving, maybe two more days, get off the oxygen will try Lasix 20mg IV now, warned her of urinating a lot this morning Review of Systems Review of Systems: All systems reviewed & are unremarkable except as noted in Subjective Constitutional: + fatigue, + malaise and + weakness; no fever Respiratory: + cough, + dyspnea and + dyspnea on exertion; no chest congestion, no sputum production and no wheezing Cardiovascular: no chest pain and no edema Gastrointestinal: no abdominal pain, no nausea, no vomiting, no constipation and no diarrhea/loose stools Physical Exam Constitutional: well developed, well nourished, + ill appearing, + obese and comfortable Neck: trachea midline, no thyromegaly Respiratory: normal respiratory effort and + cough; no respiratory distress, no labored breathing and does not use accessory muscles Auscultation: lungs clear to auscultation bilaterally Cardiovascular: RRR, no murmur, no edema Gastrointestinal (Abdomen): normal bowel sounds, soft, nontender, no hepatosplenomegaly Musculoskeletal: no cyanosis or clubbing, extremities motor strength 5/5 Skin: no rashes, warm and dry Neurologic: normal touch/pain/proprioception, CN's II-XI intact bilaterally, moves all extremities and awake; no focal motor deficits Psychiatric: A+Ox3, euthymic affect Results & Data Results & Data ([facility]) Vital Signs (Past 12 Hours) Vital Signs Temp Pulse Resp BP Pulse Ox 04/24/21 07:23 36.5 C 57 L 18 129/80 90 04/24/21 07:17 60 18 90 04/23/21 23:20 36.8 C 94 H 18 106/58 L 93 Medications Administered Current Inpatient Medications Acetaminophen (Acetaminophen 325 Mg Tab) 650 mg PO Q4H PRN PRN Reason: Pain Stop: 05/19/21 17:31 Last Admin: 04/23/21 18:16 Dose: 650 mg Documented by: Albuterol (Albuterol Hfa 8 Gm Inhaler) 2 puffs INH QID PRN PRN Reason: Shortness Of Breath Stop: 05/19/21 04:11 Albuterol (Albut/Ipratrop 3mg/0.5mg Neb 3 Ml Vial) 3 ml NEB QIDR [facility] Stop: 05/21/21 21:59 Last Admin: 04/24/21 07:17 Dose: 3 ml Documented by: Benzonatate (Benzonatate 100 Mg Capsule) 200 mg PO TID [facility] Stop: 05/21/21 21:59 Last Admin: 04/24/21 08:35 Dose: 200 mg Documented by: Citalopram Hydrobromide (Citalopram 20 Mg Tab) 10 mg PO DAILY [facility] Stop: 05/19/21 08:59 Last Admin: 04/24/21 08:38 Dose: 10 mg Documented by: Enoxaparin Sodium (Enoxaparin Inj 40 Mg/0.4 Ml Syr) 40 mg SQ Q12H [facility] Stop: 05/19/21 05:59 Last Admin: 04/24/21 06:32 Dose: 40 mg Documented by: Estradiol (Estradiol 1 Mg Tab) 0.5 mg PO DAILY [facility] Stop: 05/19/21 08:59 Last Admin: 04/24/21 08:39 Dose: 0.5 mg Documented by: Fluticasone/Vilanterol (Fluticasone/Vilanterol 100/25mcg 14 Puffs/Inhaler) 1 puffs INH QAM [facility] Stop: 05/19/21 08:59 Last Admin: 04/24/21 08:40 Dose: 1 puffs Documented by: Guaifenesin/Dextromethorphan (Guaifenesin/Dextrom Syrup 100mg/10mg 5ml Udc) 5 ml PO Q6H [facility] Stop: 05/22/21 12:29 Last Admin: 04/24/21 06:32 Dose: 5 ml Documented by: Dexamethasone 6 mg/ Syringe 1.5 mls @ 1 mls/min IV Q24H [facility] Stop: 05/19/21 08:59 Last Admin: 04/24/21 08:40 Dose: 1 mls/min Documented by: Lisinopril (Lisinopril 10 Mg Tab) 10 mg PO DAILY [facility] Stop: 05/19/21 08:59 Last Admin: 04/24/21 08:39 Dose: 10 mg Documented by: Medroxyprogesterone Acetate (Medroxyprogesterone Acetate 10 Mg Tab) 10 mg PO DAILY [facility] Stop: 05/19/21 08:59 Last Admin: 04/24/21 08:38 Dose: 10 mg Documented by: Ondansetron HCl (Ondansetron Inj 2 Mg/Ml 2 Ml Vial) 4 mg IV Q6H PRN PRN Reason: Nausea And Vomiting Stop: 05/19/21 23:41 Last Admin: 04/23/21 18:16 Dose: 4 mg Documented by: Pantoprazole Sodium (Pantoprazole 40 Mg Tab) 40 mg PO BID [facility] Stop: 05/21/21 22:14 Last Admin: 04/24/21 08:37 Dose: 40 mg Documented by: PG Care Time/CCT Total # of Minutes Spent Total Time Spent with Patient: Total time spent is greater than 50% in coordination of care (as documented) at patient's floor/unit and/or counseling patient: Coding Level of Care Code 41866 Subseq Hosp Care Lvl 3 Diagnoses COVID-19 U07.1 Pneumonia due to COVID-19 virus U07.1; J12.82 Hypoxia R09.02 Nausea R11.0 Asthma J45.909 GERD (gastroesophageal reflux disease) K21.9 Depression F32.9 NIKUNJ on CPAP G47.33; Z99.89 Obesity E66.9
[2021-04-24] MEDS ORDERED: FUROSEMIDE 20 MG in SYRINGE 0 ML IV ONE (11:03)
[2021-04-24] MEDS ORDERED: FUROSEMIDE 40 MG/4 ML VIAL IV ONE (11:30)
[2021-04-24] MEDS ORDERED: POTASSIUM CHLORIDE CRTAB 20 MEQ TABCR PO ONE (11:30)
[2021-04-25] MEDS: guaiFENesin/DEXTROM SYRUP 100MG/10MG 5ML UDC PO SCH ×4 (00:30→17:54)
[2021-04-25] MEDS: ENOXAPARIN INJ 40 MG/0.4 ML SYR SQ SCH ×2 (06:05→17:54)
[2021-04-25 07:15] LABS: BUN Creatinine Ratio 32.8 (10-20); Calcium 8.2 mg/dl (8.5-10.1); Creatinine Clr Calc Pharmacy 114.7 ml/min; Est GFR (African American) 117.7 ml/min; Est GFR (Non-African American) 101.6 ml/min
[2021-04-25] MEDS: ALBUT/IPRATROP 3MG/0.5MG NEB 3 ML VIAL NEB SCH (07:28)
[2021-04-25] MEDS ORDERED: ALBUT/IPRATROP 3MG/0.5MG NEB 3 ML VIAL NEB PRN (08:09)
[2021-04-25] MEDS: dexAMETHasone 6 MG in SYRINGE 0 ML IV SCH (08:29)
[2021-04-25] MEDS: PANTOprazole 40 MG TAB PO SCH ×2 (08:30→20:06)
[2021-04-25] MEDS: FLUTICASONE/VILANTEROL 100/25MCG 14 PUFFS/INHALER INH SCH (08:30)
[2021-04-25] MEDS: BENZONATATE 100 MG CAPSULE PO SCH ×3 (08:30→20:06)
[2021-04-25] MEDS: CITALOPRAM 20 MG TAB PO SCH (08:31)
[2021-04-25] MEDS: estradioL 1 MG TAB PO SCH (08:31)
[2021-04-25] MEDS: medroxyPROGESTERone ACETATE 10 MG TAB PO SCH (08:32)
[2021-04-25] MEDS: lisinopril 10 MG TAB PO SCH (08:32)
--- NOTE | 2021-04-25 09:23 | Hospitalist Progress Note ---
Date of Service April 25, 2021 Assessment & Plan (1) COVID-19: Plan: 50yo female presenting with Covid-19 infection. Symptoms began approximately 10-11 days prior to admission. Her appetite is improving, has more energy and started getting out of bed to chair on 04/22, she feels like she really turned the corner on 04/23 stable on room air this morning will plan for two step tomorrow morning have her ambulate in the room today with oxygen, needs to walk -Continue dexamethasone 6mg IV daily x10-day course -Lovenox 40mg SQ BID for DVT prophylaxis -Continue Tessalon 200 MG 3 times daily, and scheduled Robitussin-DM 10 mL p.o. every 6 hours to suppress cough -Incentive spirometer q 2 hours while awake and continued to encourage her to get out of bed to chair, continue flutter valve -CPAP q HS and with naps - patient may use her own machine 2 step prior to discharge, anticipate tomorrow (2) Pneumonia due to COVID-19 virus: Plan: CDS: COVID Pneumonia Chest x-ray shows bibasilar and left midlung opacities consistent with pneumonia Chest x-ray 04/22 with slightly progressed mid and lower lobe pneumonia Procalcitonin negative-this is a viral pneumonia CRP was 8, went down to 6, no need to check again - procalcitonin remains negative-no need for antibiotics -Continue supportive care and dexamethasone as above no need for repeat CXR unless she gets worse (3) Hypoxia: Plan: Acute respiratory failure with hypoxia secondary to Covid-19 pneumonia Continue dexamethasone, supplemental O2 as above stable on room air at rest today, plan for two step tomorrow (4) Nausea: Plan: Improved Zofran as needed Likely secondary to Covid-19, but could be worsened by IV Decadron and constipation which is now improving Abdomen is soft, nontender Now with bowel movement on 04/22 Continue Protonix twice daily (5) Asthma: Plan: No wheezing appreciated on exam. She reports seasonal flare of her asthma typically around this time of year - may be playing a part in her overall feeling of dyspnea -Continue duo nebs -Continue Breo -Dexamethasone 6mg IV daily Received 1 g of magnesium sulfate upon admission Supplemental O2 as needed as above (6) GERD (gastroesophageal reflux disease): Plan: Chronic -Protonix (7) Depression: Plan: Chronic. Stable. Continues to be somewhat anxious re: current health situation, but this is improving on 04/23 -Continue Citalopram (8) NIKUNJ on CPAP: Plan: CPAP qHS and with naps (9) Obesity: Plan: BMI 46 Needs weight loss This is a risk factor for severe Covid disease Plan: Ppx - Lovenox 40 BID while inpatient, and recommend sending her home with Xarelto 10 mg daily as an outpatient especially as she is on daily estradiol which puts her at even higher risk of VTE given obesity, Covid-19, and hypoxia with prolonged immobility due to hospitalization and infectious illness Code - Full Dispo - home tomorrow Admission and Anticipated Discharge Date Admission Date: April 19, 2021 Subjective patient feels great, off oxygen this morning, saturations 96% she got OOB to commode by herself, no oxygen, did not feel short of breath discussed ambulating in the room today with some oxygen, will plan for two step tomorrow morning and go home she agrees with this plan reviewed labs, Cr and K stable after Lasix yesterday minimal cough, no fever/chills she says her family can help look after her at home Review of Systems Review of Systems: All systems reviewed & are unremarkable except as noted in Subjective Physical Exam Constitutional: well developed, well nourished, + obese and comfortable; not ill appearing Neck: trachea midline, no thyromegaly Respiratory: normal respiratory effort and + cough; no respiratory distress, no labored breathing and does not use accessory muscles Auscultation: lungs clear to auscultation bilaterally Cardiovascular: RRR, no murmur, no edema Gastrointestinal (Abdomen): normal bowel sounds, soft, nontender, no hepatosplenomegaly Musculoskeletal: no cyanosis or clubbing, extremities motor strength 5/5 Skin: no rashes, warm and dry Neurologic: normal touch/pain/proprioception, CN's II-XI intact bilaterally, moves all extremities and awake; no focal motor deficits Psychiatric: A+Ox3, euthymic affect Results & Data Results & Data ([facility]) Vital Signs (Past 12 Hours) Vital Signs Temp Pulse Resp BP Pulse Ox 04/25/21 07:45 36.7 C 89 18 112/62 96 04/25/21 07:29 56 L 18 96 04/24/21 23:37 36.7 C 64 18 125/88 92 04/24/21 21:56 94 Laboratory Results Laboratory Results - last 24 hr 04/25/21 05:57 Sodium 137 Potassium 4.0 Chloride 104 Carbon Dioxide 31 Anion Gap 2.0 L BUN 22 H Creatinine 0.66 Est Cr Clr Drug Dosing 114.7 Est GFR ( Amer) 117.7 Est GFR (Non-Af Amer) 101.6 BUN/Creatinine Ratio 32.8 H Glucose 141 H Calcium 8.2 L Medications Administered Current Inpatient Medications Acetaminophen (Acetaminophen 325 Mg Tab) 650 mg PO Q4H PRN PRN Reason: Pain Stop: 05/19/21 17:31 Last Admin: 04/23/21 18:16 Dose: 650 mg Documented by: Albuterol (Albuterol Hfa 8 Gm Inhaler) 2 puffs INH QID PRN PRN Reason: Shortness Of Breath Stop: 05/19/21 04:11 Albuterol (Albut/Ipratrop 3mg/0.5mg Neb 3 Ml Vial) 3 ml NEB QIDR PRN PRN Reason: Shortness Of Breath Or Wheezin Stop: 05/21/21 21:59 Benzonatate (Benzonatate 100 Mg Capsule) 200 mg PO TID [facility] Stop: 05/21/21 21:59 Last Admin: 04/25/21 08:30 Dose: 200 mg Documented by: Citalopram Hydrobromide (Citalopram 20 Mg Tab) 10 mg PO DAILY [facility] Stop: 05/19/21 08:59 Last Admin: 04/25/21 08:31 Dose: 10 mg Documented by: Enoxaparin Sodium (Enoxaparin Inj 40 Mg/0.4 Ml Syr) 40 mg SQ Q12H [facility] Stop: 05/19/21 05:59 Last Admin: 04/25/21 06:05 Dose: 40 mg Documented by: Estradiol (Estradiol 1 Mg Tab) 0.5 mg PO DAILY [facility] Stop: 05/19/21 08:59 Last Admin: 04/25/21 08:31 Dose: 0.5 mg Documented by: Fluticasone/Vilanterol (Fluticasone/Vilanterol 100/25mcg 14 Puffs/Inhaler) 1 puffs INH QAM [facility] Stop: 05/19/21 08:59 Last Admin: 04/25/21 08:30 Dose: 1 puffs Documented by: Guaifenesin/Dextromethorphan (Guaifenesin/Dextrom Syrup 100mg/10mg 5ml Udc) 5 ml PO Q6H [facility] Stop: 05/22/21 12:29 Last Admin: 04/25/21 06:05 Dose: 5 ml Documented by: Dexamethasone 6 mg/ Syringe 1.5 mls @ 1 mls/min IV Q24H [facility] Stop: 05/19/21 08:59 Last Admin: 04/25/21 08:29 Dose: 1 mls/min Documented by: Lisinopril (Lisinopril 10 Mg Tab) 10 mg PO DAILY [facility] Stop: 05/19/21 08:59 Last Admin: 04/25/21 08:32 Dose: 10 mg Documented by: Medroxyprogesterone Acetate (Medroxyprogesterone Acetate 10 Mg Tab) 10 mg PO DAILY [facility] Stop: 05/19/21 08:59 Last Admin: 04/25/21 08:32 Dose: 10 mg Documented by: Ondansetron HCl (Ondansetron Inj 2 Mg/Ml 2 Ml Vial) 4 mg IV Q6H PRN PRN Reason: Nausea And Vomiting Stop: 05/19/21 23:41 Last Admin: 04/23/21 18:16 Dose: 4 mg Documented by: Pantoprazole Sodium (Pantoprazole 40 Mg Tab) 40 mg PO BID [facility] Stop: 05/21/21 22:14 Last Admin: 04/25/21 08:30 Dose: 40 mg Documented by: PG Care Time/CCT Total # of Minutes Spent Total Time Spent with Patient: Total time spent is greater than 50% in coordination of care (as documented) at patient's floor/unit and/or counseling patient: Coding Level of Care Code 97560 Subseq Hosp Care Lvl 2 Diagnoses COVID-19 U07.1 Pneumonia due to COVID-19 virus U07.1; J12.82 Hypoxia R09.02 Nausea R11.0 Asthma J45.909 GERD (gastroesophageal reflux disease) K21.9 Depression F32.9 NIKUNJ on CPAP G47.33; Z99.89 Obesity E66.9
[2021-04-25] MEDS: ACETAMINOPHEN 325 MG TAB PO PRN (16:03)
[2021-04-26] MEDS: guaiFENesin/DEXTROM SYRUP 100MG/10MG 5ML UDC PO SCH ×3 (01:00→12:36)
[2021-04-26] MEDS ORDERED: SODIUM CHLORIDE 0.65% NA SOLN 45 ML (OCEAN) ONE (03:15)
[2021-04-26] MEDS: ENOXAPARIN INJ 40 MG/0.4 ML SYR SQ SCH (06:02)
[2021-04-26] MEDS: estradioL 1 MG TAB PO SCH (07:59)
[2021-04-26] MEDS: medroxyPROGESTERone ACETATE 10 MG TAB PO SCH (07:59)
[2021-04-26] MEDS: FLUTICASONE/VILANTEROL 100/25MCG 14 PUFFS/INHALER INH SCH (07:59)
[2021-04-26] MEDS: CITALOPRAM 20 MG TAB PO SCH (08:00)
[2021-04-26] MEDS: dexAMETHasone 6 MG in SYRINGE 0 ML IV SCH (08:01)
[2021-04-26] MEDS: lisinopril 10 MG TAB PO SCH (08:01)
[2021-04-26] MEDS: PANTOprazole 40 MG TAB PO SCH (08:02)
[2021-04-26] MEDS: BENZONATATE 100 MG CAPSULE PO SCH (08:08)
--- NOTE | 2021-04-26 09:45 | Discharge Summary ---
Date of Service April 26, 2021 Admission HPI Per Admitting Provider Sarah Jean is a 50yo female with history of Asthma, NIKUNJ on CPAP presenting with Covid-19 infection. Patient developed symptoms appx 10-11 days ago - cough, SOB, fever, nausea and vomiting as well as decreased appetite and loss of taste sensation. She has been doing fairly well at home. Was started on Prednisone by her PCP. Presents today with concern that she is unable to take a deep breath. States that her chest feels tight and she is unable to take a full breath. Has not been taking her inhalers as prescribed due to the fact that she states she was unable to take a full breath to deliver them. She is no febrile. Cough is productive for yellow/clear sputum. She has been using her CPAP at home during the day due to concern for feeling short of breath. Unvaccinated - was planning to get her Covid vaccine this week. Was put on hold because she got her Shingles vaccine and had to wait +Sick contacts - niece and [id number] with Covid infection. Both are doing well Patient with history of [id number]. Typically experiences a flare of asthma this time of year - she believes it occurs after she goes to the [facility] Oxygen saturations in the ER as low as 88% by report No additional complaints at this time ER Course: Albuterol, Dexamethasone, Pepcid, Guaifenesin, Zofran, NSS Principal Diagnosis COVID 19 pneumonia Discharge Exam Constitutional well developed, well nourished, + obese and comfortable; not ill appearing Neck trachea midline, no thyromegaly Respiratory normal respiratory effort and + cough; no respiratory distress, no labored breathing and does not use accessory muscles Auscultation: lungs clear to auscultation bilaterally Cardiovascular RRR, no murmur, no edema Gastrointestinal (Abdomen) normal bowel sounds, soft, nontender, no hepatosplenomegaly Musculoskeletal no cyanosis or clubbing, extremities motor strength 5/5 Skin no rashes, warm and dry Neurologic normal touch/pain/proprioception, CN's II-XI intact bilaterally, moves all extremities and awake; no focal motor deficits Psychiatric A+Ox3, euthymic affect Discharge Data Allergies Allergy/AdvReac Type Severity Reaction Status Date / Time Sulfa (Sulfonamide Allergy Severe Anaphylaxis Verified 04/18/21 22:24 Antibiotics) Consultations 04/19/21 02:21 ED Decision to Admit Stat Hospital Course (1) COVID-19: 50yo female presenting with Covid-19 infection. Symptoms began approximately 10-11 days prior to admission. Her appetite is improving, has more energy and started getting out of bed to chair on 04/22, she feels like she really turned the corner on 04/23 stable on room air for 2 days two step this morning, needs 2L on exertion, arranged home oxygen -Continue dexamethasone 6mg IV daily x10-day course, will need 3 more days on discharge -Lovenox 40mg SQ BID for DVT prophylaxis will prescribe Xarelto 10mg daily for 23 more days on discharge -Continue Tessalon 200 MG 3 times daily, and scheduled Robitussin-DM 10 mL p.o. every 6 hours to suppress cough follow up with PCP (2) Pneumonia due to COVID-19 virus: CDS: COVID Pneumonia Chest x-ray shows bibasilar and left midlung opacities consistent with pneumonia Chest x-ray 04/22 with slightly progressed mid and lower lobe pneumonia Procalcitonin negative-this is a viral pneumonia CRP was 8, went down to 6, no need to check again - procalcitonin remains negative-no need for antibiotics -Continue supportive care and dexamethasone as above no need for repeat CXR unless she gets worse discharge on 3 more days of dexamethasone needs 2L on exertion only (3) Hypoxia: Acute respiratory failure with hypoxia secondary to Covid-19 pneumonia Continue dexamethasone, supplemental O2 as above stable on room air at rest for over 24 hours needs 2L on exertion (4) Nausea: resolved (5) Asthma: No wheezing appreciated on exam. -Continue duo nebs -Continue Breo -Dexamethasone 6mg IV daily Received 1 g of magnesium sulfate upon admission Supplemental O2 as needed as above (6) GERD (gastroesophageal reflux disease): Chronic -Protonix (7) Depression: Chronic. Stable. Continues to be somewhat anxious re: current health situation, but this is improving on 04/23 -Continue Citalopram (8) NIKUNJ on CPAP: CPAP qHS and with naps (9) Obesity: BMI 46 Needs weight loss This is a risk factor for severe Covid disease discharge to home with oxygen Total Time Total Time Spent Total Time Spent (In Minutes): 32 Total Time Includes: Examination of the Patient, Discharge Planning and Medication Reconciliation Discharge Plan Discharge Items Patient Disposition: Home - Self-Care Reason For Visit: COVID-19 Discharge Diagnosis: COVID 19 pneumonia Acute hypoxic respiratory failure Condition on Discharge: Good Goals: complete course of dexamethasone increase activity as tolerated Activity: Resume your previous activity Activity Comment: no need for isolation Exercise/Sports: Gradually increase as tolerated Driving/Machine Use: No limitations Weightbearing: Full weightbearing Non-emergency contact: Primary Care Provider Call non-emergency contact if: you have any medication questions Follow-up/Referrals: Radha Brown MD [Primary Care Provider] - 05/02/21 12:30 pm (Please follow up with Dr. Brown on Saturday05/02/21 at 12:30 pm. Please arrive to the office at 12:15 pm for your appointment. If you are unable to keep this appointment, please call the office to reschedule at [phone].) Diet: Regular Addtl Attending Provider Instructions: Medications: - DEXAMETHASONE: technically you had 7 days of dexamethasone and the treatment duration is 10 days, so will give you 3 more days worth to complete at home - XARELTO: take for 23 more days to help protect against blood clots COVID 19 pneumonia, acute hypoxic respiratory failure rapidly improving, will finish course of dexamethasone at home stay well nourished, well hydrated, get rest and slowly increase activity as tolerated no need to quarantine further will prescribe Xarelto to reduce risk of blood clots if you have issues with cough you can use over the counter Robitussin follow up with PCP in a week oxygen: you need 2L on exertion, anticipate you will not need after another week, you can check your saturations at home, as long as you maintain > 89% on room air you can stop the oxygen Pending Studies at Discharge: No Stand-Alone Forms: [employer] Smoking Cessation Medications and DC Order Prescriptions: New dexamethasone 4 mg tablet 6 mg PO DAILY 3 Days Qty: 5 RF: 0 Xarelto 10 mg tablet 10 mg PO DAILY 23 Days Qty: 23 RF: 0 Continued albuterol sulfate [Ventolin HFA] 90 mcg/actuation HFA aerosol inhaler 1 - 2 puff INHALATION QID PRN (Reason: Shortness Of Breath) Qty: 18 RF: 2 Breo Ellipta 100-25 mcg/dose blister with device 1 inh INHALATION QAM Qty: 60 RF: 5 medroxyprogesterone 10 mg tablet 10 mg PO .COMPLEX Qty: 10 RF: 11 estradiol 0.5 mg tablet 0.5 mg PO DAILY Qty: 30 RF: 11 lisinopril 10 mg tablet 10 mg PO DAILY Qty: 30 RF: 5 citalopram 10 mg tablet 10 mg PO DAILY Qty: 30 RF: 5 (DME) CPAP Machine Misc See Dose Instructions .ROUTE .MEDSUPPLY Qty: 11 RF: 0 multivitamin Tablet 1 tab PO QAM RF: 0 calcium carbonate [Tums] 300 mg (750 mg) Tablet,Chewable 300 mg PO DAILY PRN (Reason: Acid Reflux) RF: 0 cholecalciferol (vitamin D3) [Vitamin D3] 1,000 unit Capsule 1,000 unit PO DAILY PRN (Reason: winter months) RF: 0 omeprazole 40 mg Capsule,Delayed Release(Dr/Ec) 40 mg PO DAILY RF: 0 Discontinued prednisone 20 mg tablet See Rx Instructions PO .COMPLEX Qty: 30 RF: 0 Discharge Orders: Discharge Order (Routine); Ordered 04/26/21 Ordered By: Ben De Admission Data Admit Date/Time: 04/19/21 02:53 Attending Provider: Ben De Admit Provider: Sheryl Casillas Primary Care Provider: Radha Brown Other Providers: Sheryl Casillas Other Interventions: Discharge Summary Assessment (RN) Last Done: 04/26/21 09:48 Coding Level of Care Code D/C DAY MANAGEMENT >30 MINS Diagnoses COVID-19 U07.1 Pneumonia due to COVID-19 virus U07.1; J12.82 Hypoxia R09.02 Nausea R11.0 Asthma J45.909 GERD (gastroesophageal reflux disease) K21.9 Depression F32.9 NIKUNJ on CPAP G47.33; Z99.89 Obesity E66.9
== END 2021-04-26 13:31 | disposition home or self-care (01) | DRG 177 ==
LOC: ED 18:29 → 2E 04-19 02:53 → SUATTDRO 04-19 02:53 → 2E 04-19 03:33 → 2S 04-24 21:09
DX: U07.1 COVID-19; K21.9 Gastro-esophageal reflux disease without esophagitis; J12.82 Pneumonia due to coronavirus disease 2019; F41.9 Anxiety disorder, unspecified; Z68.42 Body mass index [BMI] 45.0-49.9, adult; Z79.899 Other long term (current) drug therapy; Z82.49 Family history of ischemic heart disease and other diseases of the circulatory system; J96.01 Acute respiratory failure with hypoxia; E66.9 Obesity, unspecified; J45.909 Unspecified asthma, uncomplicated; I10 Essential (primary) hypertension; G47.33 Obstructive sleep apnea (adult) (pediatric); F32.9 Major depressive disorder, single episode, unspecified